=== PATIENT | female | born 1985 | race Two or more races ===

== ENCOUNTER 2024-09-05 10:03 | Outpatient (AMB) | payer BC, SELFPAY ==
--- NOTE | 2024-09-05 10:07 | AMB.OBINITIA ---
Vital Signs 09/05/24 10:13 Height 1.63 m Height Method Stated Weight 83.688 kg Weight Measurement Method Standing Scale BMI 31.6 BP 124/78 Blood Pressure Source Automatic Cuff Blood Pressure Location Left Upper Arm Position Sitting Respiration 16 Pulse 98 Pulse Source Monitor Temp 97.2 F Temp Source Oral Pulse Oximetry (%) 99 Oxygen Delivery Method Room Air Allergies/Home Meds Allergies & Medications Allergies No Known Allergies Allergy (Verified 09/05/24 10:16) Medication Reconciliation vit no.95-ferrous fumarate 28 mg-folic acid 800 mcg tablet () 1 tab PO QDAY 07/17/18 [History Confirmed 09/05/24] Intake Visit Data Collection New Patient or Established: Established Patient (seen at [facility] within 3 years) Reason for Visit:: Initial visit at 18 weeks and 5 days gestation. Seen by Clinical Staff ONLY (RN/MA): No Do You Feel Safe at Home: Yes Authorities Contacted: N/A PCP or OBGYN visit in last 3 months: No Hx Now: Yes Are you currently on any form of Control: No Last menstrual period: 04/27/24 Pain Present Currently: No Pain Scale Used: Cueto-Gonsalez/Numerical Pain scale:: 0 Smoking Status Smoking Status: Never smoker Questionnaires Covid-19 Vaccine Questionnaire Has patient been vacinated for Covid-19 Have you been vacinated for Covid-19: Yes PHQ-9 PHQ-2 Over the last 2 weeks, how often have you been bothered by any of the following problems? 1. Little interest or pleasure in doing things: not at all 2. Feeling down, depressed, or hopeless: not at all Total score: 0 PHQ-9 3. Trouble falling or staying asleep, or sleeping too much: Not at all 4. Feeling tired or having little energy: Not at all 5. Poor appetite or overeating: Not at all 6. Feeling bad about yourself - or that you are a failure or have let yourself or your family down: Not at all 7. Trouble concentrating on things, such as reading the newspaper or watching television: Not at all 8. Moving or speaking so slowly that other people could have noticed? - Or the opposite - being so fidgety or restless that you have been moving around a lot more than usual: not at all 9. Thoughts that you would be better off or of hurting yourself in some way: Not at all Total score: 0 If you checked off any problems, how difficult have these problems made it for you to do your work, take care of things at home, or get along with other people?: not difficult at all Source: Developed by Drs. Osvaldo Longoria, Margarita Hogue, Dakota Gore and colleagues, with an educational kathie from [employer]. Social History Living Situation History Marital Status: Single Lives With: Family Housing: House Tobacco History Smoking Status: Never smoker Second Hand Smoke Exposure: No Alcohol History Alcohol Intake: Never Domestic Abuse History Do You Feel Safe at Home: Yes Past Medical History Past Medical History Have you ever been diagnosed with any of the following: Cardiology Problems Congestive Heart Failure: No Respiratory Problems Chronic Obstructive Pulmonary Disease (COPD): No Asthma: Yes (no meds) Genital/Urinary Problems Renal Disease: No Reproductive Problems Previous Pregnancies: Yes (x7 including 4 SAB) Endocrine Problems Diabetes Mellitus Type 1: No Diabetes Mellitus Type 2: No Other Problems Hospitalization: Yes (childbirth) History of Present Illness HPI Narrative 39-year-old female presents for initial visit at 18 weeks and 5 days gestation by stated LMP of 04/27/2024. Patient reports no prior care or ultrasounds for this . She denies any current symptoms or complications. Patient has a history of 4 previous vaginal deliveries without reported complications. She also reports a history of 3 prior pregnancies with no pole visualized, resulting in D&Cs. During her third , she experienced borderline gestational diabetes and recalls craving sugary drinks. With the current , she notes similar cravings for sugary foods. Medical History - (7 pregnancies, 4 full-term deliveries, 0 deliveries, 3 miscarriages, 4 living children) - History of 3 miscarriages (D&Cs performed) - History of borderline gestational diabetes in third OB Initial Visit Menstrual History Menstrual reliability: definite Flow: heavy Menstrual regularity: irregular Monthly: Yes Age at menarche: 10 On control pills at conception: No Date of positive home test: 07/20/24 OB History : 8 Para: 4 Hx Total # of Abortions (Spontaneous & Elective): 3 # of Living Children: 4 Delivery History 1st : Child's name: RAVI date: 03/03/02 sex: male Delivery type: vaginal weight (lbs): 3175.147 g History of depression before or after : No 2nd : Child's name: DELORES date: 08/18/10 sex: female Delivery type: vaginal weight (lbs): 3175.147 g 3rd : Child's name: SABIHA date: 01/13/13 sex: female Delivery type: vaginal weight (lbs): 3175.147 g History of depression before or after : No 4th : Child's name: GEM date: 07/17/18 sex: female Delivery type: vaginal weight (lbs): 3175.147 g History of depression before or after : No Infection History & Risk Evaluation History of STDs: none HIV risk evaluation: low risk Hepatitis B risk evaluation: low risk Patient or partner has history of Genital Herpes: No Varicella/chicken pox status: immunized Genetic Screening & History Genetic Screening/Teratology Counseling - Includes patient, baby's father, or anyone in either family with: 1. Patient's age 35 years or older as of estimated date of delivery: Yes 2. Thalassemia (E[place]ian, Citizen Of [place], Mediterranean, or Background); MCV less than 80: No 3. Neural Tube Defect (Meningomyelocele, Spina Bifida, or Anencephaly): No 4. Congenital Heart Defect: No 5. Down Syndrome: No 6. Carlos Enrique-Sachs (Ashkenazi Anglican, Cajun, [place]): No 7. Pavel Disease (Ashkenazi Anglican): No 8. Familial Dysautonomia (Ashkenazi Anglican): No 9. Sickle Cell Disease or Trait (): No 10. Hemophilia or other blood disorders: No 11. Muscular Dystrophy: No 12. Cystic Fibrosis: No 13. [place]'s Chorea: No 14. Mental Retardation/Autism: No 15. Other inherited genetic or chromosomal disorder: No 16. Maternal Metabolic Disorder (EG,TYPE 1 Diabetes, PKU): No 17. Patient or baby's father had a child with defects not listed above: Yes 18. Recurrent loss or a stillbirth: Yes 19. Medications (including supplements, vitamins, herbs or otc drugs)/illicit/recreational drugs/alcohol since last menstrual period: No 20. Any other: No Infection History 1. Live with someone with TB or exposed to TB: No 2. Rash or viral illness since last menstrual period: No 3. Hepatitis B,C: No Other (see comments) Source: [employer] [place] [employer] Review of Systems Review of Systems Systems Reviewed: All systems reviewed, normal except as documented Exam General Limitations: no limitations General Appearance: alert, in no apparent distress, comfortable, cooperative, healthy appearing, well developed and well groomed Head Head exam: atraumatic, normocephalic and normal inspection Neck Neck exam: Present normal inspection, full ROM and trachea midline Chest Chest inspection: Present normal inspection and symmetric chest wall rise Abdominal Abdominal exam: Present soft and normal bowel sounds Extremities Extremities exam: Present normal inspection and full ROM Back Back exam: Present normal inspection and full ROM Psych Psychiatric exam: Present normal affect and normal mood Skin Skin exam: Present warm, dry, intact and normal color Assessment & Plan Diagnosis / Problem List (1) Advanced maternal age (AMA), 40 years or greater: Status: Acute (2) Grand multiparity: Status: Acute (3) Supervision of high risk , unspecified, second trimester: Status: Acute Plan: at 18 weeks 5 days gestation 39-year-old presenting for initial visit at 18 weeks 5 days gestation by LMP. Patient has a history of 4 previous vaginal deliveries and 3 prior pregnancies with no development ( no baby in the sack ). Ultrasound performed in office showed cardiac activity with heart rate of 163 bpm, which is within normal range. However, measurements were inconsistent with dates, measuring approximately 15-16 weeks instead of the expected 18 weeks. Patient reports history of borderline gestational diabetes in a previous . - Referral for formal ultrasound to confirm gestational age and anatomy - Laboratory tests including genetic screening - Prescribe vitamins - Initiate low-dose aspirin for preeclampsia prevention (due to advanced maternal age) - Follow-up appointment in 2 weeks - Anticipate results of genetic screening and sex determination within 3-4 days Office Procedures OB Clinic LOC & Office Proc's Nursing/Assessment Patient Status: Initial/New Patient OB Clinic Nursing Assessment: BP Monitoring, Medication Reconciliation, Update PMH in EMR and Vital Signs OB Clinic Coordination of Care: Consent,records obtained, informed consent, Education Simp Pt/Fam, Lab and Imaging orders and Staff clarify orders Special Needs: Heart tones New Patient Charge New Patient Point Assignment: [id number] New Patient Point Charge: DONATION WORKER Level 4 ([id number]) Bedside Ultrasounds US Transabdominal >14 weeks at bedside: Yes
[2024-09-05 10:13] VITALS: BP 124/78; PULSE 98; RESP 16; TEMP 36.2; O2SAT 99; BMI 31.6
== END 2024-09-05 10:36 | disposition home or self-care (01) ==
LOC: HODSOBC 10:03
PROVIDERS: PCP Family Medicine; Supervising Provider Obstetrics & Gynecology; Visit Provider Obstetrics & Gynecology
DX: O09.522 Supervision of elderly multigravida, second trimester (principal); Z3A.18 18 weeks gestation of pregnancy; O09.42 Supervision of pregnancy with grand multiparity, second trimester; O09.892 Supervision of other high risk pregnancies, second trimester; O26.842 Uterine size-date discrepancy, second trimester; O09.292 Supervision of pregnancy with other poor reproductive or obstetric history, second trimester; Z86.32 Personal history of gestational diabetes; Z87.59 Personal history of other complications of pregnancy, childbirth and the puerperium
CPT/HCPCS: 76805; 99204; G0463

== ENCOUNTER → 2024-09-05 | Outpatient (CLI) | payer BC, SELFPAY ==
--- NOTE | 2024-09-05 | XR_ITS ---
Examination: Complete OB ultrasound greater than 14 weeks Date and time of exam: September 05, 2024 1122 hours INDICATIONS: Diagnosis supervision of high risk Findings: Viable intrauterine single fetus with single amniotic sac presentation Vertex spine variable Cardiac motion 155 BPM Placenta posterior grade 2 Umbilical cord insertion seen Amniotic fluid adequate Cervix 3.8 cm Right ovary 2.3 cm arterial flow Left ovary 3.1 cm arterial flow. Composite estimated gestational age based on BPD, head circumference, abdominal circumference, femur length is 14 weeks 0 days Estimated weight 89 g. Survey of intracranial anatomy, spinal anatomy, abdominal anatomy, four-chamber heart performed with no abnormalities identified. Impression: Viable intrauterine gestation vertex presentation.
== END | disposition home or self-care (01) ==
PROVIDERS: PCP Internal Medicine; Referring Provider Obstetrics & Gynecology; Visit Provider Obstetrics & Gynecology
DX: O09.92 Supervision of high risk pregnancy, unspecified, second trimester (principal); Z3A.14 14 weeks gestation of pregnancy
CPT/HCPCS: 76805

== ENCOUNTER 2024-09-17 09:32 | Outpatient (AMB) | payer BC, SELFPAY ==
--- NOTE | 2024-09-17 09:39 | AMB.OBVISIT ---
Vital Signs 09/17/24 10:22 Height 1.63 m Height Method Stated Weight 83.688 kg Weight Measurement Method Standing Scale BMI 31.5 BP 124/76 Blood Pressure Source Automatic Cuff Blood Pressure Location Left Upper Arm Position Sitting Respiration 18 Pulse 95 Pulse Source Monitor Temp 97.9 F Temp Source Oral Pulse Oximetry (%) 98 Oxygen Delivery Method Room Air Allergies/Home Meds Allergies & Medications Allergies No Known Allergies Allergy (Verified 09/17/24 10:23) Intake Visit Data Collection New Patient or Established: Established Patient (seen at [facility] within 3 years) Reason for Visit:: care Seen by Clinical Staff ONLY (RN/MA): No Senior Electrical Designer Required: No Do You Feel Safe at Home: Yes Authorities Contacted: N/A PCP or OBGYN visit in last 3 months: Yes Date of Last PCP or OBGYN visit: 09/05/24 Hx Now: Yes Are you currently on any form of Control: No Last menstrual period: 05/02/24 Pain Present Currently: No Pain Scale Used: Cueto-Gonsalez/Numerical Pain scale:: 0 Smoking Status Smoking Status: Never smoker Questionnaires Covid-19 Vaccine Questionnaire Has patient been vacinated for Covid-19 Have you been vacinated for Covid-19: Yes PHQ-9 PHQ-2 Over the last 2 weeks, how often have you been bothered by any of the following problems? 1. Little interest or pleasure in doing things: not at all 2. Feeling down, depressed, or hopeless: not at all Total score: 0 PHQ-9 3. Trouble falling or staying asleep, or sleeping too much: Not at all 4. Feeling tired or having little energy: Not at all 5. Poor appetite or overeating: Not at all 6. Feeling bad about yourself - or that you are a failure or have let yourself or your family down: Not at all 7. Trouble concentrating on things, such as reading the newspaper or watching television: Not at all 8. Moving or speaking so slowly that other people could have noticed? - Or the opposite - being so fidgety or restless that you have been moving around a lot more than usual: not at all 9. Thoughts that you would be better off or of hurting yourself in some way: Not at all Total score: 0 Source: Developed by Jose Mosleyet B.W. Mykel, Dakota Gore and colleagues, with an educational kathie from [employer]. Depression screen completed yes Social History Living Situation History Marital Status: Lives With: Family Housing: House Tobacco History Smoking Status: Never smoker Second Hand Smoke Exposure: No Alcohol History Alcohol Intake: Never Substance Use History Substance Use: none Domestic Abuse History Do You Feel Safe at Home: Yes Past Medical History Past Medical History Have you ever been diagnosed with any of the following: Cardiology Problems Congestive Heart Failure: No Respiratory Problems Chronic Obstructive Pulmonary Disease (COPD): No Asthma: Yes (no meds) Genital/Urinary Problems Renal Disease: No Reproductive Problems Previous Pregnancies: Yes (x7 including 4 SAB) Endocrine Problems Diabetes Mellitus Type 1: No Diabetes Mellitus Type 2: No Other Problems Hospitalization: Yes (childbirth) History of Present Illness HPI Narrative History of Present Illness Patient is a woman presenting for routine care. An ultrasound was performed on September 05, at which time the gestational age was determined to be 14 weeks and 0 days. Today, the patient is at 15 weeks and 5 days gestation with an estimated due date of March 06. The patient inquired about determining the fetus's sex, which will be assessed through upcoming laboratory tests. No CTX/LOF/VB, stable N/V Review of Systems Review of Systems Systems Reviewed: All systems reviewed, normal except as documented Visit NORMA Calculator Estimated Delivery Date Method Current WG Current Estimate 03/06/25 Ultrasound #1 16w 0d Other Estimates 02/01/25 LMP (Uncertain) 20w 5d Exam General Limitations: no limitations General Appearance: alert, in no apparent distress, comfortable, cooperative, healthy appearing, well developed and well groomed Head Head exam: atraumatic, normocephalic and normal inspection Neck Neck exam: Present normal inspection, full ROM and trachea midline Chest Chest inspection: Present normal inspection and symmetric chest wall rise Abdominal Abdominal exam: Present soft and normal bowel sounds Extremities Extremities exam: Present normal inspection and full ROM Back Back exam: Present normal inspection and full ROM Psych Psychiatric exam: Present normal affect and normal mood Skin Skin exam: Present warm, dry, intact and normal color Assessment & Plan Diagnosis / Problem List (1) Advanced maternal age (AMA), 40 years or greater: Status: Acute (2) Grand multiparity: Status: Acute (3) Supervision of high risk , unspecified, second trimester: Status: Acute Plan: Intrauterine Patient is at 15 weeks and 5 days gestation based on ultrasound measurements from September 05, which showed a gestational age of 14 weeks and 0 days. The ultrasound demonstrated appropriate measurements and a good heartbeat. The estimated due date is March 06, 2025. - Complete pending laboratory tests - Follow-up appointment scheduled in 4 weeks (around 20 weeks gestation) - Genetic screening results expected in approximately 3 days Pt Education Educated the patient on labor signs, including regular contractions, lower back pain, and changes in vaginal discharge. Advised avoiding heavy lifting and getting adequate rest. Instructed to contact the office immediately if any signs occur. Discussed the importance of a balanced diet rich in folic acid, iron, and calcium, and provided a list of recommended and to-avoid foods. Emphasized avoiding high-sugar foods to reduce gestational diabetes risk. Encouraged hydration and frequent, small meals for energy. Office Procedures OB Clinic LOC & Office Proc's Nursing/Assessment Patient Status: Established Patient OB Clinic Nursing Assessment: Medication Reconciliation, Update PMH in EMR and Vital Signs OB Clinic Coordination of Care: Complex Care and Chronic Disease 1-5, Consent,records obtained, informed consent, Education Simp Pt/Fam, Lab and Imaging orders and Staff clarify orders Special Needs: Heart tones Established Patient Charge Established Patient Point Assignment: 130 Established Patient Point Charge: EP Level 4 (120-155)
[2024-09-17 10:22] VITALS: BP 124/76; PULSE 95; RESP 18; TEMP 36.6; O2SAT 98; BMI 31.5
== END 2024-09-17 10:35 | disposition home or self-care (01) ==
LOC: HODSOBC 09:32
PROVIDERS: PCP Obstetrics & Gynecology; Referring Provider Obstetrics & Gynecology; Supervising Provider Obstetrics & Gynecology; Visit Provider Obstetrics & Gynecology
DX: O09.522 Supervision of elderly multigravida, second trimester (principal); Z3A.14 14 weeks gestation of pregnancy; Z64.1 Problems related to multiparity
CPT/HCPCS: 99214; G0463

== ENCOUNTER → 2024-09-20 | Outpatient (CLI) | payer BC, SELFPAY ==
[2024-09-20 10:13] LABS: Basophils % (Auto) 0 % (0-2.5); Eosinophils # (Auto) 0.2 Thou/mm3 (0.0-0.5); Eosinophils % (Auto) 2 % (0-10); Hematocrit 33.3 % (36.0-46.0); Hemoglobin 10.8 g/dL (12.0-16.0); Immature Granulocytes % (Auto) 0 % (0-0); Immature Granulocytes Auto 0.04 Thou/mm3 (0.00-0.00); Lymphocytes # (Auto) 1.8 Thou/mm3 (1.0-4.8); Lymphocytes % (Auto) 19 % (10-50); Mean Corpuscular HGB Conc 32.4 g/dl (31.0-37.0); Mean Corpuscular Hemoglobin 27.2 pg (25.0-35.0); Mean Corpuscular Volume 84 fL (80-100); Monocytes # (Auto) 0.5 Thou/mm3 (0.0-0.8); Monocytes % (Auto) 6 % (0-12); Neutrophils # (Auto) 6.9 Thou/mm3 (1.8-7.7); Neutrophils % (Auto) 73 % (37-80); Nucleated Red Blood Cell % 0 /100 WBC (0); Platelet Count 265 Thou/mm3 (140-440); RDW Standard Deviation 50.6 fL (36.4-46.3); Red Blood Count 3.97 Miln/mm3 (4.00-5.20); White Blood Count 9.5 Thou/mm3 (3.6-11.0)
[2024-09-20 10:41] LABS: Glucose 81 mg/dL (74-106); Glucose Estimated Average 105 mg/dL (80-131); Hemoglobin A1C 5.3 % Hgb (4.8-6.0)
[2024-09-20 10:54] LABS: Hepatitis B Surface Antigen Non Reactive (Non React); Rubella, IgG Antibody Equivocal
[2024-09-20 11:39] LABS: HIV (1&2) Antibody Rapid Non-Reactive
== END | disposition home or self-care (01) ==
LOC: COPL 08:43
PROVIDERS: PCP Internal Medicine; Referring Provider Obstetrics & Gynecology; Visit Provider Obstetrics & Gynecology
DX: O09.92 Supervision of high risk pregnancy, unspecified, second trimester (principal); Z64.1 Problems related to multiparity; Z3A.00 Weeks of gestation of pregnancy not specified
CPT/HCPCS: 36415; 82947; 83036; 85025; 86703; 86762; 86850; 86900; 86901; 87340

== ENCOUNTER 2024-10-15 09:07 | Outpatient (AMB) | payer BC, SELFPAY ==
[2024-10-15 09:16] VITALS: BP 114/73; PULSE 90; RESP 16; TEMP 36.8; O2SAT 98; BMI 32.3
--- NOTE | 2024-10-15 09:16 | OBCLNT_ITS ---
Vital Signs 10/15/24 09:16 Height 1.63 m Height Method Stated Weight 85.899 kg Weight Measurement Method Standing Scale BMI 32.3 BP 114/73 Blood Pressure Source Automatic Cuff Blood Pressure Location Left Upper Arm Position Sitting Respiration 16 Pulse 90 Pulse Source Monitor Temp 98.2 F Temp Source Oral Pulse Oximetry (%) 98 Oxygen Delivery Method Room Air Allergies/Home Meds Allergies & Medications Allergies No Known Allergies Allergy (Verified 10/15/24 09:17) Medication Reconciliation No Known Home Medications 10/15/24 [History Confirmed 10/15/24] Intake Visit Data Collection New Patient or Established: Established Patient (seen at [facility] within 3 years) Reason for Visit:: OBC Seen by Clinical Staff ONLY (RN/MA): No Medicare Specialist Required: No Do You Feel Safe at Home: Yes Authorities Contacted: N/A PCP or OBGYN visit in last 3 months: Yes Date of Last PCP or OBGYN visit: 09/20/24 Hx Now: Yes Are you currently on any form of Control: No Pain Present Currently: No Pain Scale Used: Cueto-Gonsalez/Numerical Pain scale:: 0 Smoking Status Smoking Status: Never smoker Questionnaires Covid-19 Vaccine Questionnaire Has patient been vacinated for Covid-19 Have you been vacinated for Covid-19: Yes PHQ-9 PHQ-2 Over the last 2 weeks, how often have you been bothered by any of the following problems? 1. Little interest or pleasure in doing things: not at all 2. Feeling down, depressed, or hopeless: not at all Total score: 0 PHQ-9 3. Trouble falling or staying asleep, or sleeping too much: Not at all 4. Feeling tired or having little energy: Not at all 5. Poor appetite or overeating: Not at all 6. Feeling bad about yourself - or that you are a failure or have let yourself or your family down: Not at all 7. Trouble concentrating on things, such as reading the newspaper or watching television: Not at all 8. Moving or speaking so slowly that other people could have noticed? - Or the opposite - being so fidgety or restless that you have been moving around a lot more than usual: not at all 9. Thoughts that you would be better off or of hurting yourself in some way: Not at all Total score: 0 If you checked off any problems, how difficult have these problems made it for you to do your work, take care of things at home, or get along with other people?: not difficult at all Source: Developed by Drs. Osvaldo Longoria, Margarita Hogue, Dakota Gore and colleagues, with an educational kathie from [employer]. Depression screen completed yes Social History Living Situation History Lives With: Family Housing: House Tobacco History Smoking Status: Never smoker Second Hand Smoke Exposure: No Alcohol History Alcohol Intake: Never Substance Use History Substance Use: none Domestic Abuse History Do You Feel Safe at Home: Yes Past Medical History Past Medical History Have you ever been diagnosed with any of the following: Cardiology Problems Congestive Heart Failure: No Respiratory Problems Chronic Obstructive Pulmonary Disease (COPD): No Asthma: Yes (no meds) Genital/Urinary Problems Renal Disease: No Reproductive Problems Previous Pregnancies: Yes (x7 including 4 SAB) Endocrine Problems Diabetes Mellitus Type 1: No Diabetes Mellitus Type 2: No Other Problems Hospitalization: Yes (childbirth) History of Present Illness HPI Narrative Patient reports feeling good overall with no significant complaints. She mentions she can feel the baby moving a little bit, describing it as just the beginning of it. She denies any current nausea, vomiting, or stomach cramping. Layla had some difficulties obtaining her lab work due to insurance issues at an off-site location, but was able to complete most of the required tests at the clinic. She has an upcoming ultrasound scheduled for the of this month. She is a 8 para 4 at 19 weeks and 5 days gestation. Her obstetric history includes 3 abortions and 4 living children. Patient reports feeling movement. Review of Systems Review of Systems Systems Reviewed: All systems reviewed, normal except as documented Visit OB Visit Log OB Flowsheet Initial Weight: Not Recorded Date -?-?-?-?-?-?-?-?-?-?-?-?- EGA Weight Edema CTX Effacement BP Fundal ht Pres Dilation Effacement Station Visit Note Alb Glu FHR Mov 10/15/24 -?-?-?-?-?-?-?-?-?-?-?-?- 19w 5d 85.899 kg 114/73 grav abby 8 para 4 at 19 weeks and 5 days gestation. Her obstetric history includes 3 abortions and 4 living children. Patient reports feeling movement. Diagnostic Test Results and Labs: - Blood group: A positive - Antibody screen: Negative - Hemoglobin: 10.8 g/dL - RPR: Non-reactive - Hepatitis B: Negative - HIV: Negative - Rubella: Equivocal. - Ultrasound scheduled for October 24. - Follow-up appointment in 4 weeks (appr oximately 24 weeks gestation) with Dr. Paniagua. - Genetic testing still pending due to i nsurance issues at [facility]. - Provided new lab order for patient to attempt genetic testing again. active NORMA Calculator Estimated Delivery Date Method Current WG Current Estimate 03/06/25 Ultrasound #1 20w 1d Other Estimates 02/01/25 LMP (Uncertain) 24w 6d Exam General Limitations: no limitations General Appearance: alert, in no apparent distress, comfortable, cooperative, healthy appearing, well developed and well groomed Head Head exam: atraumatic, normocephalic and normal inspection Chest Chest inspection: Present normal inspection and symmetric chest wall rise Abdominal Abdominal exam: Present soft and normal bowel sounds Psych Psychiatric exam: Present normal affect and normal mood Skin Skin exam: Present warm, dry, intact and normal color Assessment & Plan Diagnosis / Problem List (1) Advanced maternal age (AMA), 40 years or greater: Status: Acute (2) Grand multiparity: Status: Acute (3) Supervision of high risk , unspecified, second trimester: Status: Acute Plan Routine Care: - Patient at 19 weeks and 5 days gestation. - Blood group A positive, negative antibody screen. - Hemoglobin 10.8, non-reactive RPR, negative hepatitis B and HIV. - Equivocal rubella. - heart rate normal at 144-145 bpm. - Patient reports feeling movement. - Denies nausea, vomiting, or stomach cramping. Plan: - Ultrasound scheduled for October 24, 2024. - Follow-up appointment in 4 weeks (approximately 24 weeks gestation) with Dr. Paniagua. - Genetic testing still pending due to insurance issues at [facility]. - Provided new lab order for patient to attempt genetic testing again. Office Procedures OB Clinic LOC & Office Proc's Nursing/Assessment Patient Status: Established Patient OB Clinic Nursing Assessment: BP Monitoring, Medication Reconciliation, Update PMH in EMR and Vital Signs OB Clinic Coordination of Care: Consent,records obtained, informed consent, Education Simp Pt/Fam, Lab and Imaging orders and Staff clarify orders Established Patient Charge Established Patient Point Assignment: 90 Established Patient Point Charge: EP Level 3 (80-115)
== END 2024-10-15 09:35 | disposition home or self-care (01) ==
LOC: HODSOBC 09:07
PROVIDERS: PCP Obstetrics & Gynecology; Referring Provider Obstetrics & Gynecology; Supervising Provider Obstetrics & Gynecology; Visit Provider Obstetrics & Gynecology
DX: O09.522 Supervision of elderly multigravida, second trimester (principal); Z3A.19 19 weeks gestation of pregnancy; O09.292 Supervision of pregnancy with other poor reproductive or obstetric history, second trimester; O26.22 Pregnancy care for patient with recurrent pregnancy loss, second trimester; O09.42 Supervision of pregnancy with grand multiparity, second trimester; Z75.8 Other problems related to medical facilities and other health care
CPT/HCPCS: 99213; G0463

== ENCOUNTER 2024-11-14 09:31 | Outpatient (AMB) | payer BC, SELFPAY ==
[2024-11-14 09:53] VITALS: BP 128/80; PULSE 96; RESP 18; TEMP 36.6; O2SAT 98; BMI 32.6
--- NOTE | 2024-11-14 09:53 | AMB.OBVISIT ---
Vital Signs 11/14/24 09:53 Height 1.63 m Height Method Stated Weight 86.693 kg Weight Measurement Method Standing Scale BMI 32.6 BP 128/80 Blood Pressure Source Automatic Cuff Blood Pressure Location Left Upper Arm Position Sitting Respiration 18 Pulse 96 Pulse Source Monitor Temp 97.8 F Temp Source Oral Pulse Oximetry (%) 98 Oxygen Delivery Method Room Air Allergies/Home Meds Allergies & Medications Allergies No Known Allergies Allergy (Verified 11/14/24 09:54) Medication Reconciliation vitamin-ferrous fumarate 28 mg iron-folic acid 800 mcg tablet ( Vitamins with Minerals) 1 tab PO QDAY #60 tabs 11/14/24 [Rx] Intake Visit Data Collection New Patient or Established: Established Patient (seen at [facility] within 3 years) Reason for Visit:: CARE Seen by Clinical Staff ONLY (RN/MA): No Rate Quoting Operator Required: No Do You Feel Safe at Home: Yes Authorities Contacted: N/A PCP or OBGYN visit in last 3 months: Yes Hx Now: Yes Are you currently on any form of Control: No Pain Present Currently: No Pain Scale Used: Cueto-Gonsalez/Numerical Pain scale:: 0 Smoking Status Smoking Status: Never smoker Questionnaires Covid-19 Vaccine Questionnaire Has patient been vacinated for Covid-19 Have you been vacinated for Covid-19: Yes PHQ-9 PHQ-2 Over the last 2 weeks, how often have you been bothered by any of the following problems? 1. Little interest or pleasure in doing things: not at all 2. Feeling down, depressed, or hopeless: not at all Total score: 0 PHQ-9 3. Trouble falling or staying asleep, or sleeping too much: Not at all 4. Feeling tired or having little energy: Not at all 5. Poor appetite or overeating: Not at all 6. Feeling bad about yourself - or that you are a failure or have let yourself or your family down: Not at all 7. Trouble concentrating on things, such as reading the newspaper or watching television: Not at all 8. Moving or speaking so slowly that other people could have noticed? - Or the opposite - being so fidgety or restless that you have been moving around a lot more than usual: not at all 9. Thoughts that you would be better off or of hurting yourself in some way: Not at all Total score: 0 Source: Developed by Drs. Osvaldo Longoria, Margarita Hogue, Dakota Gore and colleagues, with an educational kathie from [employer]. 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 Her obstetric history includes 3 abortions and 4 living children. Patient reports feeling movement. Diagnostic Test Results and Labs: - Blood group: A positive - Antibody screen: Negative - Hemoglobin: 10.8 g/dL - RPR: Non-reactive - Hepatitis B: Negative - HIV: Negative - Rubella: Equivocal. - Ultrasound scheduled for October 24, 2024. - Follow-up appointment in 4 weeks (approximately 24 weeks gestation) with Dr. Paniagua. - Genetic testing still pending due to insurance issues at [facility]. - Provided new lab order for patient to attempt genetic testing again. active 11/14/24 <del>?</del> 24w 0d 86.693 kg absent absent 128/80 24 reports + FM. no PTL complaints. patient plans to go to [facility] for 2 week 12/12. No OB complaints. 3rd tri labs, ptl precaution, f/u MFM6/66. rtc 4 week 145 active NORMA Calculator Estimated Delivery Date Method Current WG Current Estimate 03/06/25 Ultrasound #1 24w 0d Other Estimates 02/01/25 LMP (Uncertain) 28w 5d Notes Visit Date: 11/14/24 Last Updated by: Arcelia Joy, CNM 39 yo . lmp 05/31/24. EDC 03/06/25, mfm 10/24: 21 week. EDC: 03/08/25. : A+,ABS-, rpr;;nr, rub NI, HIV-glucose:105, A1: 5.3, H/H: Office Procedures OB Clinic LOC & Office Proc's Nursing/Assessment Patient Status: Established Patient OB Clinic Nursing Assessment: Medication Reconciliation, Update PMH in EMR and Vital Signs OB Clinic Coordination of Care: AMA, Complex Care and Chronic Disease 1-5, Consent,records obtained, informed consent, Education Simp Pt/Fam, Lab and Imaging orders, Results/Orders obtained and Staff clarify orders Special Needs: Heart tones Miscellaneous Interventions: Blood/Urine Collection Established Patient Charge Established Patient Point Assignment: 185 Established Patient Point Charge: EP Level 5 (160-above) Assessment & Plan Diagnosis / Problem List (1) Advanced maternal age (AMA), 40 years or greater: Status: Acute Plan 3rd tri lab, ptl precaution, start GDM diet, walk 40 minute daily. f/u [facility] 12/26, note for travel [place], increase fluid. continue PNV, low dose asa. rtc 3 week Additional Plan Follow Up: 3 Weeks (obc)
== END 2024-11-14 10:26 | disposition home or self-care (01) ==
LOC: HODSOBC 09:31
PROVIDERS: PCP Obstetrics & Gynecology; Referring Provider Obstetrics & Gynecology; Supervising Provider Obstetrics & Gynecology; Visit Provider Obstetrics & Gynecology
DX: O09.522 Supervision of elderly multigravida, second trimester (principal); Z3A.24 24 weeks gestation of pregnancy
CPT/HCPCS: 81001; 99215; G0463

== ENCOUNTER → 2024-11-14 | Outpatient (CLI) | payer BC, SELFPAY ==
[2024-11-14 13:43] LABS: Basophils % (Auto) 0 % (0-2.5); Eosinophils # (Auto) 0.1 Thou/mm3 (0.0-0.5); Eosinophils % (Auto) 1 % (0-10); Hemoglobin 11.1 g/dL (12.0-16.0); Immature Granulocytes % (Auto) 1 % (0-0); Lymphocytes # (Auto) 1.6 Thou/mm3 (1.0-4.8); Lymphocytes % (Auto) 17 % (10-50); Mean Corpuscular HGB Conc 34.7 g/dl (31.0-37.0); Mean Corpuscular Hemoglobin 30.9 pg (25.0-35.0); Mean Corpuscular Volume 89 fL (80-100); Monocytes # (Auto) 0.4 Thou/mm3 (0.0-0.8); Monocytes % (Auto) 4 % (0-12); Neutrophils # (Auto) 7.5 Thou/mm3 (1.8-7.7); Neutrophils % (Auto) 77 % (37-80); Nucleated Red Blood Cell % 0 /100 WBC (0); Platelet Count 253 Thou/mm3 (140-440); RDW Standard Deviation 51.2 fL (36.4-46.3); Red Blood Count 3.59 Miln/mm3 (4.00-5.20); White Blood Count 9.7 Thou/mm3 (3.6-11.0)
[2024-11-14 13:48] LABS: Glucose,1 Hour PP 50gm Dose 198 mg/dL (80-140)
[2024-11-14 13:49] LABS: Glucose Estimated Average 94 mg/dL (80-131); Hemoglobin A1C 4.9 % Hgb (4.8-6.0)
[2024-11-14 14:08] LABS: Syphilis Nonreactive (Nonreactive)
== END | disposition home or self-care (01) ==
LOC: COPL 10:26
PROVIDERS: PCP Internal Medicine; Referring Provider Obstetrics & Gynecology; Visit Provider Obstetrics & Gynecology
DX: Z34.83 Encounter for supervision of other normal pregnancy, third trimester (principal)
CPT/HCPCS: 36415; 82950; 83036; 85025; 86780

== ENCOUNTER 2024-12-05 09:09 | Outpatient (AMB) | payer BC, SELFPAY ==
[2024-12-05 09:49] VITALS: BP 132/79; PULSE 96; RESP 18; TEMP 36.2; O2SAT 98; BMI 33.3
--- NOTE | 2024-12-05 09:49 | AMB.OBVISIT ---
Vital Signs 12/05/24 09:49 Height 1.63 m Height Method Stated Weight 88.451 kg Weight Measurement Method Standing Scale BMI 33.3 BP 132/79 H Blood Pressure Source Automatic Cuff Blood Pressure Location Left Upper Arm Position Sitting Respiration 18 Pulse 96 Pulse Source Monitor Temp 97.2 F Temp Source Oral Pulse Oximetry (%) 98 Oxygen Delivery Method Room Air Allergies/Home Meds Allergies & Medications Allergies No Known Allergies Allergy (Verified 12/05/24 09:49) Medication Reconciliation vitamin-ferrous fumarate 28 mg iron-folic acid 800 mcg tablet ( Vitamins with Minerals) 1 tab PO QDAY #60 tabs 11/14/24 [Rx Confirmed 12/05/24] blood sugar diagnostic (Blood Glucose Test strips) #10 ea 12/05/24 [Rx] blood-glucose meter #1 ea 12/05/24 [Rx] ferrous sulfate 325 mg (65 mg iron) tablet 325 mg PO BID #60 tabs 12/05/24 [Rx] lancets #100 ea 12/05/24 [Rx] loratadine 10 mg tablet (Claritin) 10 mg PO QDAY PRN allergic symptoms #30 tabs 12/05/24 [Rx] vitamin-ferrous fumarate 28 mg iron-folic acid 800 mcg tablet ( Vitamins with Minerals) 1 tab PO QDAY #60 tabs 12/05/24 [Rx] Intake Visit Data Collection New Patient or Established: Established Patient (seen at [facility] within 3 years) Reason for Visit:: OBC Seen by Clinical Staff ONLY (RN/MA): No Pilot Boat Operator Required: No Do You Feel Safe at Home: Yes Authorities Contacted: N/A PCP or OBGYN visit in last 3 months: Yes Date of Last PCP or OBGYN visit: 11/14/24 Hx Now: Yes Are you currently on any form of Control: No Pain Present Currently: No Pain Scale Used: Cueto-Gonsalez/Numerical Pain scale:: 0 Smoking Status Smoking Status: Never smoker Questionnaires Covid-19 Vaccine Questionnaire Has patient been vacinated for Covid-19 Have you been vacinated for Covid-19: Yes PHQ-9 PHQ-2 Over the last 2 weeks, how often have you been bothered by any of the following problems? 1. Little interest or pleasure in doing things: not at all 2. Feeling down, depressed, or hopeless: not at all Total score: 0 PHQ-9 3. Trouble falling or staying asleep, or sleeping too much: Not at all 4. Feeling tired or having little energy: Not at all 5. Poor appetite or overeating: Not at all 6. Feeling bad about yourself - or that you are a failure or have let yourself or your family down: Not at all 7. Trouble concentrating on things, such as reading the newspaper or watching television: Not at all 8. Moving or speaking so slowly that other people could have noticed? - Or the opposite - being so fidgety or restless that you have been moving around a lot more than usual: not at all 9. Thoughts that you would be better off or of hurting yourself in some way: Not at all Total score: 0 If you checked off any problems, how difficult have these problems made it for you to do your work, take care of things at home, or get along with other people?: not difficult at all Source: Developed by Drs. Osvaldo Longoria, Margarita Hogue, Dakota Gore and colleagues, with an educational kathie from [employer]. 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 Her obstetric history includes 3 abortions and 4 living children. Patient reports feeling movement. Diagnostic Test Results and Labs: - Blood group: A positive - Antibody screen: Negative - Hemoglobin: 10.8 g/dL - RPR: Non-reactive - Hepatitis B: Negative - HIV: Negative - Rubella: Equivocal. - Ultrasound scheduled for October 24, 2024. - Follow-up appointment in 4 weeks (approximately 24 weeks gestation) with Dr. Paniagua. - Genetic testing still pending due to insurance issues at [facility]. - Provided new lab order for patient to attempt genetic testing again. 11/14/24 <del>?</del> 24w 0d 86.693 kg 128/80 absent 24 145 active reports + FM. no PTL complaints. patient plans to go to [facility] for 2 week 12/12. No OB complaints. 3rd tri labs, ptl precaution, f/u MFM. rtc 4 week 12/05/24 <del>?</del> 27w 0d 88.451 kg 132/79 absent unknown 27 142 active leaving for [facility] 12/12. RTC 12/25, denies PTL complaints, reports good FM, No OB complaints, refill PNV/iron and claritin, start monitoring BS, rx glucometer,lancet and strips to [facility], discuss GDM diet, test 1 hr P meals and fasting in am, walk 4o minute daily, hydrate, ptl precaution, f/u mfm. 12/26 NORMA Calculator Estimated Delivery Date Method Current WG Current Estimate 03/06/25 Ultrasound #1 27w 0d Other Estimates 02/01/25 LMP (Uncertain) 31w 5d Notes Visit Date: 12/05/24 Last Updated by: Arcelia Joy CNM 12/05; cbc: hct: 32/11, platelet:wnl, 1hr gtt: 198, rpr;nr, A1c: 4.9, TDAP today sono 09/06/23: 14 weeks. EDC 03/06/25. (final NORMA. No Dates) Visit Date: 11/14/24 Last Updated by: Arcelia Joy CNM 39 yo . lmp 05/31/24. EDC 03/06/25, mfm 10/24: 21 week. EDC: 03/08/25. : A+,ABS-, rpr;;nr, rub NI, HIV-glucose:105, A1: 5.3, H/H: Office Procedures OB Clinic LOC & Office Proc's Nursing/Assessment Patient Status: Established Patient OB Clinic Nursing Assessment: Medication Reconciliation, Update PMH in EMR and Vital Signs OB Clinic Coordination of Care: Education Complex Pt/Fam, Consent,records obtained, informed consent, Lab and Imaging orders, Results/Orders obtained and Staff clarify orders Special Needs: Heart tones Miscellaneous Interventions: VIS to patient Established Patient Charge Established Patient Point Assignment: 125 Established Patient Point Charge: EP Level 4 (120-155) Injection/Vaccine Admin Admin 1st Vaccine: Yes Immunizations diphth,pertus(acell),tetanus 2.5 Lf unit-8 mcg-5 Lf/0.5mL IM syringe Performing Provider: Arcelia Joy CNM Performing Location: [facility] Administered by: Tana Boyce MA on 12/05/24 17:18 Dose Route Admin Location Dispensed Lot Number Expiration Date [facility] 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 review dates, ordered DM kit, patient will test 4 x daily. review dates, walk 40 minute daily. hydrate. continue PNV. note for travel. ptl precaution. rtc 3 week. OBc Additional Plan Follow Up: 2 Weeks (OBC)
== END 2024-12-05 10:52 | disposition home or self-care (01) ==
LOC: HODSOBC 09:09
PROVIDERS: PCP Advanced Practice Midwife; Referring Provider Advanced Practice Midwife; Supervising Provider Obstetrics & Gynecology; Visit Provider Advanced Practice Midwife
DX: O09.522 Supervision of elderly multigravida, second trimester (principal); Z3A.27 27 weeks gestation of pregnancy; Z23 Encounter for immunization
CPT/HCPCS: 90471; 90715; 99213; 99214; G0463

== ENCOUNTER 2025-01-08 09:37 | Outpatient (AMB) | payer BC, SELFPAY ==
[2025-01-08 09:57] VITALS: BP 127/79; PULSE 87; RESP 17; TEMP 36.4; O2SAT 97; BMI 33.0
--- NOTE | 2025-01-08 09:57 | AMB.OBVISIT ---
Vital Signs 01/08/25 09:57 Height 1.63 m Height Method Measured Weight 87.6 kg Weight Measurement Method Standing Scale BMI 33.0 BP 127/79 Blood Pressure Source Automatic Cuff Blood Pressure Location Right Upper Arm Position Sitting Respiration 17 Pulse 87 Pulse Source Monitor Temp 97.5 F Temp Source Temporal Artery Scan Pulse Oximetry (%) 97 Oxygen Delivery Method Room Air Allergies/Home Meds Allergies & Medications Allergies No Known Allergies Allergy (Verified 01/08/25 09:58) Medication Reconciliation vitamin-ferrous fumarate 28 mg iron-folic acid 800 mcg tablet ( Vitamins with Minerals) 1 tab PO QDAY #60 tabs 11/14/24 [Rx Confirmed 01/08/25] blood sugar diagnostic (Blood Glucose Test strips) #10 ea 12/05/24 [Rx Confirmed 01/08/25] blood-glucose meter #1 ea 12/05/24 [Rx Confirmed 01/08/25] ferrous sulfate 325 mg (65 mg iron) tablet 325 mg PO BID #60 tabs 12/05/24 [Rx Confirmed 01/08/25] lancets #100 ea 12/05/24 [Rx Confirmed 01/08/25] loratadine 10 mg tablet (Claritin) 10 mg PO QDAY PRN allergic symptoms #30 tabs 12/05/24 [Rx Confirmed 01/08/25] vitamin-ferrous fumarate 28 mg iron-folic acid 800 mcg tablet ( Vitamins with Minerals) 1 tab PO QDAY #60 tabs 12/05/24 [Rx Confirmed 01/08/25] ferrous sulfate 325 mg (65 mg iron) tablet 325 mg PO BID #60 tabs 01/08/25 [Rx] Intake Visit Data Collection New Patient or Established: Established Patient (seen at 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 1. Little interest or pleasure in doing things: not at all PHQ-9 8. Moving or speaking so slowly that other people could have noticed? - Or the opposite - being so fidgety or restless that you have been moving around a lot more than usual: not at all Source: Developed by Drs. Osvaldo Longoria, Margarita Hogue, Dakota Gore and colleagues, with an educational kathie from [employer]. 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 Her obstetric history includes 3 abortions and 4 living children. Patient reports feeling movement. Diagnostic Test Results and Labs: - Blood group: A positive - Antibody screen: Negative - Hemoglobin: 10.8 g/dL - RPR: Non-reactive - Hepatitis B: Negative - HIV: Negative - Rubella: Equivocal. - Ultrasound scheduled for October 24, 2024. - Follow-up appointment in 4 weeks (approximately 24 weeks gestation) with Dr. Paniagua. - Genetic testing still pending due to insurance issues at [facility]. - Provided new lab order for patient to attempt genetic testing again. 11/14/24 <del>?</del> 24w 0d 86.693 kg 128/80 absent 24 145 active reports + FM. no PTL complaints. patient plans to go to [facility] for 2 week 12/12. No OB complaints. 3rd tri labs, ptl precaution, f/u MFM. rtc 4 week 12/05/24 <del>?</del> 27w 0d 88.451 kg 132/79 absent unknown 27 142 active leaving for [place] 12/12. RTC 12/25, denies PTL complaints, reports good FM, No OB complaints, refill PNV/iron and claritin, start monitoring BS, rx glucometer,lancet and strips to [facility], discuss GDM diet, test 1 hr P meals and fasting in am, walk 4o minute daily, hydrate, ptl precaution, f/u mfm. 12/2601/08/25 <del>?</del> 31w 6d 87.6 kg 127/79 absent unknown 32 143 active fetus active, no PTL complaints, disability nV, discuss GTT and 3rd tri lab results, ordered glucometer,lancet and strip. discuss GDM diet, test 4 x dailt, schedule week NST/BPP, walk 40 min daily. TDAP [place], hydrate, keep f/u mfm appointmant NORMA Calculator Estimated Delivery Date Method Current WG Current Estimate 03/06/25 Ultrasound #1 31w 6d Other Estimates 02/01/25 LMP (Uncertain) 36w 4d Notes Visit Date: 01/08/25 Last Updated by: Arcelia Joy CNM 7/8: 1hr gtt: 192, A1c: 4.9, Visit Date: 12/05/24 Last Updated by: Arcelia Joy CNM 12/05; cbc: hct: 32/11, platelet:wnl, 1hr gtt: 198, rpr;nr, A1c: 4.9, TDAP today sono 09/06/23: 14 weeks. EDC 03/06/25. (final NORMA. No Dates) Visit Date: 11/14/24 Last Updated by: Arcelia Joy CNM 39 yo . lmp 05/31/24. EDC 03/06/25, mfm 10/24: 21 week. EDC: 03/08/25. : A+,ABS-, rpr;;nr, rub NI, HIV-glucose:105, A1: 5.3, H/H: Office Procedures OB Clinic LOC & Office Proc's Nursing/Assessment Patient Status: Established Patient OB Clinic Nursing Assessment: Medication Reconciliation, Update PMH in EMR and Vital Signs OB Clinic Coordination of Care: Complex Care and Chronic Disease 1-5, Consent,records obtained, informed consent, 4+ Authorizations needed and Results/Orders obtained Special Needs: Heart tones Miscellaneous Interventions: Blood/Urine Collection Established Patient Charge Established Patient Point Assignment: 150 Established Patient Point Charge: EP Level 4 (120-155) Assessment & Plan Diagnosis / Problem List (1) Diet controlled gestational diabetes mellitus (GDM) in second trimester: Status: Acute (2) Advanced maternal age (AMA), 40 years or greater: Status: Acute (3) Grand multiparity: Status: Acute Plan schedule week NST/BPP, order GDM kit, patient will p/u. test 4 x daily,fasting and 1 hr after meal. discuss GDM diet and values. walk 40 minute daily. fkc bid. hydrate. f/u with mfm as scheduled. sono for growth [place]. rtc 2 week for obc and TDAP Additional Plan Follow Up: 2 Weeks (obc)
== END 2025-01-08 10:50 | disposition home or self-care (01) ==
LOC: HODSOBC 09:37
PROVIDERS: PCP Advanced Practice Midwife; Referring Provider Advanced Practice Midwife; Supervising Provider Advanced Practice Midwife; Visit Provider Advanced Practice Midwife
DX: O09.523 Supervision of elderly multigravida, third trimester (principal); O09.893 Supervision of other high risk pregnancies, third trimester; O24.410 Gestational diabetes mellitus in pregnancy, diet controlled; Z3A.31 31 weeks gestation of pregnancy
CPT/HCPCS: 99214; G0463

== ENCOUNTER 2025-01-22 08:29 | Outpatient (AMB) | payer BC, SELFPAY ==
[2025-01-22 08:36] VITALS: BP 120/79; PULSE 87; RESP 18; TEMP 36.5; O2SAT 96; BMI 33.3
--- NOTE | 2025-01-22 08:36 | AMB.OBVISIT ---
Vital Signs 01/22/25 08:36 Height 1.63 m Height Method Stated Weight 88.677 kg Weight Measurement Method Standing Scale BMI 33.3 BP 120/79 Blood Pressure Source Automatic Cuff Blood Pressure Location Right Upper Arm Position Sitting Respiration 18 Pulse 87 Pulse Source Monitor Temp 97.7 F Temp Source Temporal Artery Scan Pulse Oximetry (%) 96 Oxygen Delivery Method Room Air Allergies/Home Meds Allergies & Medications Allergies No Known Allergies Allergy (Verified 01/22/25 08:37) Medication Reconciliation vitamin-ferrous fumarate 28 mg iron-folic acid 800 mcg tablet ( Vitamins with Minerals) 1 tab PO QDAY #60 tabs 11/14/24 [Rx Confirmed 01/22/25] blood sugar diagnostic (Blood Glucose Test strips) #10 ea 12/05/24 [Rx Confirmed 01/22/25] blood-glucose meter #1 ea 12/05/24 [Rx Confirmed 01/22/25] ferrous sulfate 325 mg (65 mg iron) tablet 325 mg PO BID #60 tabs 12/05/24 [Rx Confirmed 01/22/25] lancets #100 ea 12/05/24 [Rx Confirmed 01/22/25] loratadine 10 mg tablet (Claritin) 10 mg PO QDAY PRN allergic symptoms #30 tabs 12/05/24 [Rx Confirmed 01/22/25] vitamin-ferrous fumarate 28 mg iron-folic acid 800 mcg tablet ( Vitamins with Minerals) 1 tab PO QDAY #60 tabs 12/05/24 [Rx Confirmed 01/22/25] ferrous sulfate 325 mg (65 mg iron) tablet 325 mg PO BID #60 tabs 01/08/25 [Rx Confirmed 01/22/25] blood sugar diagnostic (Blood Glucose Test strips) #10 ea 01/22/25 [Rx] blood-glucose meter #1 ea 01/22/25 [Rx] lancets #100 ea 01/22/25 [Rx] Intake Visit Data Collection New Patient or Established: Established Patient (seen at [facility] within 3 years) Reason for Visit:: OBC Seen by Clinical Staff ONLY (RN/MA): No Sports Marketing Coordinator Required: No Do You Feel Safe at Home: Yes Authorities Contacted: N/A PCP or OBGYN visit in last 3 months: Yes Date of Last PCP or OBGYN visit: 01/16/25 Hx Now: Yes Are you currently on any form of Control: No Pain Present Currently: No Pain Scale Used: Cueto-Gonsalez/Numerical Pain scale:: 0 Smoking Status Smoking Status: Never smoker Questionnaires Covid-19 Vaccine Questionnaire Has patient been vacinated for Covid-19 Have you been vacinated for Covid-19: Yes PHQ-9 PHQ-2 Over the last 2 weeks, how often have you been bothered by any of the following problems? 1. Little interest or pleasure in doing things: not at all 2. Feeling down, depressed, or hopeless: not at all Total score: 0 PHQ-9 3. Trouble falling or staying asleep, or sleeping too much: Not at all 4. Feeling tired or having little energy: Not at all 5. Poor appetite or overeating: Not at all 6. Feeling bad about yourself - or that you are a failure or have let yourself or your family down: Not at all 7. Trouble concentrating on things, such as reading the newspaper or watching television: Not at all 8. Moving or speaking so slowly that other people could have noticed? - Or the opposite - being so fidgety or restless that you have been moving around a lot more than usual: not at all 9. Thoughts that you would be better off or of hurting yourself in some way: Not at all Total score: 0 If you checked off any problems, how difficult have these problems made it for you to do your work, take care of things at home, or get along with other people?: not difficult at all Source: Developed by Drs. Osvaldo Longoria, Margarita Hogue, Dakota Gore and colleagues, with an educational kathie from [employer]. 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 Her obstetric history includes 3 abortions and 4 living children. Patient reports feeling movement. Diagnostic Test Results and Labs: - Blood group: A positive - Antibody screen: Negative - Hemoglobin: 10.8 g/dL - RPR: Non-reactive - Hepatitis B: Negative - HIV: Negative - Rubella: Equivocal. - Ultrasound scheduled for October 24, 2024. - Follow-up appointment in 4 weeks (approximately 24 weeks gestation) with Dr. Paniagua. - Genetic testing still pending due to insurance issues at [facility]. - Provided new lab order for patient to attempt genetic testing again. 11/14/24 <del>?</del> 24w 0d 86.693 kg 128/80 absent 24 145 active reports + FM. no PTL complaints. patient plans to go to [facility] for 2 week 12/12. No OB complaints. 3rd tri labs, ptl precaution, f/u MFM6/. rtc 4 week 12/05/24 <del>?</del> 27w 0d 88.451 kg 132/79 absent unknown 27 142 active leaving for [facility] [address] 12/12. RTC 12/25, denies PTL complaints, reports good FM, No OB complaints, refill PNV/iron and claritin, start monitoring BS, rx glucometer,lancet and strips to [facility], discuss GDM diet, test 1 hr P meals and fasting in am, walk 4o minute daily, hydrate, ptl precaution, f/u mfm. 12/2601/08/25 <del>?</del> 31w 6d 87.6 kg 127/79 absent unknown 32 143 active fetus active, no PTL complaints, disability nV, discuss GTT and 3rd tri lab results, ordered glucometer,lancet and strip. discuss GDM diet, test 4 x dailt, schedule week NST/BPP, walk 40 min daily. TDAP NV, hydrate, keep f/u mfm appointmant 01/22/25 <del>?</del> 33w 6d 88.677 kg 120/79 absent cephalic 33 145 active Increased third trimester discomforts. Pressure. Patient thinks she lost her mucous plug. Reports good movement. Patient is concerned that lab did not give her the proper test strips for her glucometer. Denies leaking, bleeding, contractions. Reordered glucometer kit. Reviewed labor precautions. Increase fluids. I discussed GDM diet and logging P. Continue weekly NST BPP. She has a follow-up MFM in February. Increase fluids. Discussed labor precautions. Return in 2 weeks for GBS Reordered glucometer kit. Reviewed labor precautions. Increase fluids. I discussed GDM diet and logging P. Continue weekly NST BPP. She has a follow-up MFM in February. Increase fluids. Discussed labor precautions. Return in 2 weeks for GBS, Patient needs nuswab for GC/CT with GBS nv NORMA Calculator Estimated Delivery Date Method Current WG Current Estimate 03/06/25 Ultrasound #1 33w 6d Other Estimates 02/01/25 LMP (Uncertain) 38w 4d 03/06/25 Ultrasound #2 33w 6d Notes Visit Date: 01/22/25 Last Updated by: Arcelia Joy CNM 01/22: 39 yo poor dates. LMP 04/27/24. EDC: 02/01/25. 1st sono: 09/05/24: 14week. CEDC: 03/06/25. A+,abs-, rpr;;nr, rub: equivical, HBSAG-,HC-,HIV-, GC/CT:not done, GDM/diet anatomy scan: 10/24: IUP 21 week/confirm CEDC. 12/26 growth sono: IUP 30 week, EFW 44%. Visit Date: 01/08/25 Last Updated by: Arcelia Joy CNM 01/08: 1hr gtt: 192, A1c: 4.9, Visit Date: 12/05/24 Last Updated by: Arcelia Joy CNM 12/05; cbc: hct: 32/11, platelet:wnl, 1hr gtt: 198, rpr;nr, A1c: 4.9, TDAP today sono 09/06/23: 14 weeks. EDC 03/06/25. (final NORMA. No Dates) Visit Date: 11/14/24 Last Updated by: Arcelia Joy CNM 39 yo . lmp 05/31/24. EDC 03/06/25, mfm 10/24: 21 week. EDC: 03/08/25. : A+,ABS-, rpr;;nr, rub NI, HIV-glucose:105, A1: 5.3, H/H: Office Procedures OB Clinic LOC & Office Proc's Nursing/Assessment Patient Status: Established Patient OB Clinic Nursing Assessment: Medication Reconciliation, Update PMH in EMR and Vital Signs OB Clinic Coordination of Care: Complex Care and Chronic Disease 1-5, Consent,records obtained, informed consent, Education Simp Pt/Fam and Staff clarify orders Special Needs: Heart tones Established Patient Charge Established Patient Point Assignment: 115 Established Patient Point Charge: EP Level 3 (80-115) Assessment & Plan Diagnosis / Problem List (1) Diet controlled gestational diabetes mellitus (GDM) in second trimester: Status: Acute (2) Advanced maternal age (AMA), 40 years or greater: Status: Acute (3) Supervision of high risk , unspecified, second trimester: Status: Acute Plan Note for light duty. Discussed labor precautions. Discussed GDM diet. Continue weekly NST BPP. Induced at 39 weeks. I reordered patient's glucometer and glucose monitoring kit. Return in 2 weeks OB check. Do GC/CT/nuswab NV with GBS Additional Plan Follow Up: 2 Weeks (obc/gbs)
== END 2025-01-22 09:12 | disposition home or self-care (01) ==
LOC: HODSOBC 08:29
PROVIDERS: Supervising Provider Advanced Practice Midwife; Visit Provider Advanced Practice Midwife
DX: O09.523 Supervision of elderly multigravida, third trimester (principal); O09.893 Supervision of other high risk pregnancies, third trimester; O24.420 Gestational diabetes mellitus in childbirth, diet controlled; O36.5930 Maternal care for other known or suspected poor fetal growth, third trimester, not applicable or unspecified; Z3A.33 33 weeks gestation of pregnancy
CPT/HCPCS: 99213; G0463

== ENCOUNTER 2025-01-31 14:16 | Observation (INO) | payer BC, SELFPAY ==
[2025-01-31 14:22] VITALS: BMI 33.7
[2025-01-31 14:36] VITALS: BP 136/89; PULSE 109; RESP 16; TEMP 36.6; O2SAT 100
[2025-01-31 14:44] VITALS: BP 119/64; PULSE 93; PULSE 95; O2SAT 97
[2025-01-31 14:49] VITALS: PULSE 92; O2SAT 98
[2025-01-31 14:54] VITALS: BP 115/58; PULSE 89; O2SAT 97
[2025-01-31 14:59] VITALS: PULSE 93; O2SAT 99
[2025-01-31 15:01] VITALS: BP 136/89; PULSE 109; RESP 100; RESP 16; TEMP 36.6
== END 2025-01-31 15:30 | disposition home or self-care (01) ==
PROVIDERS: Admitting Provider Specialist; Visit Provider Specialist
DX: O26.893 Other specified pregnancy related conditions, third trimester (principal); Z3A.35 35 weeks gestation of pregnancy; M54.50 Low back pain, unspecified; R25.2 Cramp and spasm
CPT/HCPCS: 59025; 59899

== ENCOUNTER 2025-02-05 08:51 | Outpatient (AMB) | payer BC, SELFPAY ==
[2025-02-05 09:00] VITALS: BP 127/78; PULSE 90; RESP 18; TEMP 36.4; O2SAT 98; BMI 33.6
--- NOTE | 2025-02-05 09:00 | AMB.OBVISIT ---
Vital Signs 02/05/25 09:00 Height 1.63 m Height Method Stated Weight 88.961 kg Weight Measurement Method Standing Scale BMI 33.6 BP 127/78 Blood Pressure Source Automatic Cuff Blood Pressure Location Left Upper Arm Position Sitting Respiration 18 Pulse 90 Pulse Source Monitor Temp 97.6 F Temp Source Oral Pulse Oximetry (%) 98 Oxygen Delivery Method Room Air Allergies/Home Meds Allergies & Medications Allergies No Known Allergies Allergy (Verified 02/05/25 09:01) Medication Reconciliation vitamin-ferrous fumarate 28 mg iron-folic acid 800 mcg tablet ( Vitamins with Minerals) 1 tab PO QDAY #60 tabs 11/14/24 [Rx Confirmed 02/05/25] blood sugar diagnostic (Blood Glucose Test strips) #10 ea 12/05/24 [Rx Confirmed 02/05/25] blood-glucose meter #1 ea 12/05/24 [Rx Confirmed 02/05/25] ferrous sulfate 325 mg (65 mg iron) tablet 325 mg PO BID #60 tabs 12/05/24 [Rx Confirmed 02/05/25] lancets #100 ea 12/05/24 [Rx Confirmed 02/05/25] loratadine 10 mg tablet (Claritin) 10 mg PO QDAY PRN allergic symptoms #30 tabs 12/05/24 [Rx Confirmed 02/05/25] vitamin-ferrous fumarate 28 mg iron-folic acid 800 mcg tablet ( Vitamins with Minerals) 1 tab PO QDAY #60 tabs 12/05/24 [Rx Confirmed 02/05/25] ferrous sulfate 325 mg (65 mg iron) tablet 325 mg PO BID #60 tabs 01/08/25 [Rx Confirmed 02/05/25] blood sugar diagnostic (Blood Glucose Test strips) #10 ea 01/22/25 [Rx Confirmed 02/05/25] blood-glucose meter #1 ea 01/22/25 [Rx Confirmed 02/05/25] lancets #100 ea 01/22/25 [Rx Confirmed 02/05/25] Intake Visit Data Collection New Patient or Established: Established Patient (seen at [facility] within 3 years) Reason for Visit:: CARE Seen by Clinical Staff ONLY (RN/MA): No Client Services Coordinator Required: No Do You Feel Safe at Home: Yes Authorities Contacted: N/A PCP or OBGYN visit in last 3 months: Yes Hx Now: Yes Are you currently on any form of Control: No Pain Present Currently: No Pain Scale Used: Cueto-Gonsalez/Numerical Pain scale:: 0 Smoking Status Smoking Status: Never smoker Questionnaires Covid-19 Vaccine Questionnaire Has patient been vacinated for Covid-19 Have you been vacinated for Covid-19: Yes PHQ-9 PHQ-2 Over the last 2 weeks, how often have you been bothered by any of the following problems? 1. Little interest or pleasure in doing things: not at all 2. Feeling down, depressed, or hopeless: not at all Total score: 0 PHQ-9 3. Trouble falling or staying asleep, or sleeping too much: Not at all 4. Feeling tired or having little energy: Not at all 5. Poor appetite or overeating: Not at all 6. Feeling bad about yourself - or that you are a failure or have let yourself or your family down: Not at all 7. Trouble concentrating on things, such as reading the newspaper or watching television: Not at all 8. Moving or speaking so slowly that other people could have noticed? - Or the opposite - being so fidgety or restless that you have been moving around a lot more than usual: not at all 9. Thoughts that you would be better off or of hurting yourself in some way: Not at all Total score: 0 Source: Developed by Drs. Osvaldo Longoria, Margarita Hogue, Dakota Gore and colleagues, with an educational kathie from [employer]. 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 Her obstetric history includes 3 abortions and 4 living children. Patient reports feeling movement. Diagnostic Test Results and Labs: - Blood group: A positive - Antibody screen: Negative - Hemoglobin: 10.8 g/dL - RPR: Non-reactive - Hepatitis B: Negative - HIV: Negative - Rubella: Equivocal. - Ultrasound scheduled for October 24, 2024. - Follow-up appointment in 4 weeks (approximately 24 weeks gestation) with Dr. Paniagua. - Genetic testing still pending due to insurance issues at [facility]. - Provided new lab order for patient to attempt genetic testing again. 11/14/24 <del>?</del> 24w 0d 86.693 kg 128/80 absent 24 145 active reports + FM. no PTL complaints. patient plans to go to [facility] for 2 week 12/12. No OB complaints. 3rd tri labs, ptl precaution, f/u MFM. rtc 4 week 12/05/24 <del>?</del> 27w 0d 88.451 kg 132/79 absent unknown 27 142 active leaving for [facility] 12/12. RTC 12/25, denies PTL complaints, reports good FM, No OB complaints, refill PNV/iron and claritin, start monitoring BS, rx glucometer,lancet and strips to [facility], discuss GDM diet, test 1 hr P meals and fasting in am, walk 4o minute daily, hydrate, ptl precaution, f/u mfm. 12/2601/08/25 <del>?</del> 31w 6d 87.6 kg 127/79 absent unknown 32 143 active fetus active, no PTL complaints, disability nV, discuss GTT and 3rd tri lab results, ordered glucometer,lancet and strip. discuss GDM diet, test 4 x dailt, schedule week NST/BPP, walk 40 min daily. TDAP NV, hydrate, keep f/u mfm appointmant 01/22/25 <del>?</del> 33w 6d 88.677 kg 120/79 absent cephalic 33 145 active Increased third trimester discomforts. Pressure. Patient thinks she lost her mucous plug. Reports good movement. Patient is concerned that lab did not give her the proper test strips for her glucometer. Denies leaking, bleeding, contractions. Reordered glucometer kit. Reviewed labor precautions. Increase fluids. I discussed GDM diet and logging P. Continue weekly NST BPP. She has a follow-up MFM in February. Increase fluids. Discussed labor precautions. Return in 2 weeks for GBS Reordered glucometer kit. Reviewed labor precautions. Increase fluids. I discussed GDM diet and logging P. Continue weekly NST BPP. She has a follow-up MFM in February. Increase fluids. Discussed labor precautions. Return in 2 weeks for GBS, Patient needs nuswab for GC/CT with GBS nv 02/05/25 <del>?</del> 35w 6d 88.961 kg 127/78 absent cephalic 35 145 active CX:LCP/high. soft. 02/01 ER visit for back pain and vomiting. DC home, UA clear. fetus active. feels better today. denies leaking.no bleeding,no uc. sugares at goal, compliant with week NST/BPP and FKV. IOL 39week continue GDM diet, walk 40 minutes, continue monitoring BS and week NST/BPP. fkc bid, hydt=rate. comfort measure for back ache, gydrate. ptl precaution, rtc 1 week continue GDM diet, walk 40 minutes, continue monitoring BS and week NST/BPP. fkc bid, hydt=rate. comfort measure for back ache, gydrate. ptl precaution, rtc 1 week. GBS NORMA Calculator Estimated Delivery Date Method Current WG Current Estimate 03/06/25 Ultrasound #1 35w 6d Other Estimates 02/01/25 LMP (Uncertain) 40w 4d 03/06/25 Ultrasound #2 35w 6d Notes Visit Date: 01/22/25 Last Updated by: Arcelia Joy CNM 01/22: 39 yo poor dates. LMP 04/27/24. EDC: 02/01/25. 1st sono: 09/05/24: 14week. CEDC: 03/06/25. A+,abs-, rpr;;nr, rub: equivical, HBSAG-,HC-,HIV-, GC/CT:not done, GDM/diet anatomy scan: 10/24: IUP 21 week/confirm CEDC. 12/26 growth sono: IUP 30 week, EFW 44%. Visit Date: 01/08/25 Last Updated by: Arcelia Joy CNM 01/08: 1hr gtt: 192, A1c: 4.9, Visit Date: 12/05/24 Last Updated by: Arcelia Joy CNM 12/05; cbc: hct: 32/11, platelet:wnl, 1hr gtt: 198, rpr;nr, A1c: 4.9, TDAP today sono 09/06/23: 14 weeks. EDC 03/06/25. (final NORMA. No Dates) Visit Date: 11/14/24 Last Updated by: Arcelia Joy CNM 39 yo . lmp 05/31/24. EDC 03/06/25, m 10/24: 21 week. EDC: 03/08/25. : A+,ABS-, rpr;;nr, rub NI, HIV-glucose:105, A1: 5.3, H/H: / Office Procedures OB Clinic LOC & Office Proc's Nursing/Assessment Patient Status: Established Patient OB Clinic Nursing Assessment: Medication Reconciliation, Update PMH in EMR and Vital Signs OB Clinic Coordination of Care: AMA, Complex Care and Chronic Disease 1-5, Consent,records obtained, informed consent, Education Simp Pt/Fam, Lab and Imaging orders, Results/Orders obtained and Staff clarify orders Special Needs: Heart tones Miscellaneous Interventions: Culture Specimen Collection Established Patient Charge Established Patient Point Assignment: 170 Established Patient Point Charge: EP Level 5 (160-above) Assessment & Plan Diagnosis / Problem List (1) Diet controlled gestational diabetes mellitus (GDM) in second trimester: Status: Acute (2) Advanced maternal age (AMA), 40 years or greater: Status: Acute (3) Grand multiparity: Status: Acute Plan GBS today. Continue to monitor blood sugars. Continue GDM diet. Patient is compliant with sugars at goal. She will continue weekly NST BPP. Walking 45 minutes a day. Increase fluids. Comfort measures for back pain. Discussed labor precautions. Kick counts twice daily. Return a week OB check Additional Plan Follow Up: 1 Week (obc)
== END 2025-02-05 09:27 | disposition home or self-care (01) ==
LOC: HODSOBC 08:51
PROVIDERS: Supervising Provider Advanced Practice Midwife; Visit Provider Advanced Practice Midwife
DX: O09.523 Supervision of elderly multigravida, third trimester (principal); O09.43 Supervision of pregnancy with grand multiparity, third trimester; O09.893 Supervision of other high risk pregnancies, third trimester; O24.410 Gestational diabetes mellitus in pregnancy, diet controlled; O99.891 Other specified diseases and conditions complicating pregnancy; M54.9 Dorsalgia, unspecified; Z3A.35 35 weeks gestation of pregnancy; Z36.85 Encounter for antenatal screening for Streptococcus B
CPT/HCPCS: 99215; G0463

== ENCOUNTER 2025-02-12 10:50 | Outpatient (AMB) | payer BC, SELFPAY ==
[2025-02-12 11:13] VITALS: BP 123/72; PULSE 79; RESP 16; TEMP 36.9; O2SAT 95; BMI 34.0
--- NOTE | 2025-02-12 11:13 | OBCLNT_ITS ---
Vital Signs 02/12/25 11:13 Height 1.63 m Height Method Stated Weight 90.322 kg Weight Measurement Method Standing Scale BMI 34.0 BP 123/72 Blood Pressure Source Automatic Cuff Blood Pressure Location Left Upper Arm Position Sitting Respiration 16 Pulse 79 Pulse Source Monitor Temp 98.5 F Temp Source Oral Pulse Oximetry (%) 95 Oxygen Delivery Method Room Air Allergies/Home Meds Allergies & Medications Allergies No Known Allergies Allergy (Verified 02/12/25 11:14) Medication Reconciliation vitamin-ferrous fumarate 28 mg iron-folic acid 800 mcg tablet ( Vitamins with Minerals) 1 tab PO QDAY #60 tabs 11/14/24 [Rx Confirmed 02/12/25] blood sugar diagnostic (Blood Glucose Test strips) #10 ea 12/05/24 [Rx Confirmed 02/12/25] blood-glucose meter #1 ea 12/05/24 [Rx Confirmed 02/12/25] ferrous sulfate 325 mg (65 mg iron) tablet 325 mg PO BID #60 tabs 12/05/24 [Rx Confirmed 02/12/25] lancets #100 ea 12/05/24 [Rx Confirmed 02/12/25] loratadine 10 mg tablet (Claritin) 10 mg PO QDAY PRN allergic symptoms #30 tabs 12/05/24 [Rx Confirmed 02/12/25] vitamin-ferrous fumarate 28 mg iron-folic acid 800 mcg tablet ( Vitamins with Minerals) 1 tab PO QDAY #60 tabs 12/05/24 [Rx Confirmed 02/12/25] ferrous sulfate 325 mg (65 mg iron) tablet 325 mg PO BID #60 tabs 01/08/25 [Rx Confirmed 02/12/25] blood sugar diagnostic (Blood Glucose Test strips) #10 ea 01/22/25 [Rx Confirmed 02/12/25] blood-glucose meter #1 ea 01/22/25 [Rx Confirmed 02/12/25] lancets #100 ea 01/22/25 [Rx Confirmed 02/12/25] Intake Visit Data Collection New Patient or Established: Established Patient (seen at [facility] within 3 years) Reason for Visit:: CARE Seen by Clinical Staff ONLY (RN/MA): No 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 1. Little interest or pleasure in doing things: not at all 2. Feeling down, depressed, or hopeless: not at all Total score: 0 PHQ-9 3. Trouble falling or staying asleep, or sleeping too much: Not at all 4. Feeling tired or having little energy: Not at all 5. Poor appetite or overeating: Not at all 6. Feeling bad about yourself - or that you are a failure or have let yourself or your family down: Not at all 7. Trouble concentrating on things, such as reading the newspaper or watching television: Not at all 8. Moving or speaking so slowly that other people could have noticed? - Or the opposite - being so fidgety or restless that you have been moving around a lot more than usual: not at all 9. Thoughts that you would be better off or of hurting yourself in some way: Not at all Total score: 0 Source: Developed by Drs. Osvaldo Longoria, Margarita Hogue, Dakota Gore and colleagues, with an educational kathie from [employer]. 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 Her obstetric history includes 3 abortions and 4 living children. Patient reports feeling movement. Diagnostic Test Results and Labs: - Blood group: A positive - Antibody screen: Negative - Hemoglobin: 10.8 g/dL - RPR: Non-reactive - Hepatitis B: Negative - HIV: Negative - Rubella: Equivocal. - Ultrasound scheduled for October 24 5. - Follow-up appointment in 4 weeks (appr oximately 24 weeks gestation) with Dr. Paniagua. - Genetic testing still pending due to i nsurance issues at [facility]. - Provided new lab order for patient to attempt genetic test ing again. 11/14/24 -?-?-?-?-?-?-?-?-?-?-?-?- 24w 0d 86.693 kg 128/80 absent 24 145 ac tive reports + FM. no PTL complaints. patient plans to go to [facility] for 2 week 12/12. No OB complaints. 3rd tri labs, ptl precaution, f/u MFM/. rtc 4 week 12/05/24 -?-?-?-?-?-?-?-?-?-?-?-?- w 0d 88.451 kg 132/79 absent unknown 27 142 active leaving for [facility] 12/12. RTC 12/25, denies PTL complaints, reports good FM, No OB complaints, refill PNV/iron and claritin, start monitoring BS, rx glucometer,lancet and strips to [facility], discuss GDM diet, test 1 hr P meals and fasting in am, walk 4o minute daily, hydrate, ptl precaution, f/u mfm. 12/2601/08/25 -?-?-?-?-?-?-?-?-?-?-?-?- 31w 6d 87.6 kg 127/79 absent unknown 32 143 active fetus active, no PTL complaints, disability nV, disc uss GTT and 3rd tri lab results, ordered glucometer,lancet and strip. discuss GDM diet, test 4 x dailt, schedule week NST/BPP, walk 40 min daily. TDAP NV, hydrate, keep f/u mfm appointmant 01/22/25 -?-?-?-?-?-?-?-?-?-?-?-?- 33w 6d 88.677 kg 120/79 absent cephalic 33 145 active Increased third trimester discomforts. Pressure. Patient thinks she lost her mucous plug. Reports good movement. Patient is concerned that lab did not give her the proper test strips for her glucometer. Denies leaking, bleeding, contractions. Reordered glucometer kit. Reviewed labor precautions. Increase fluids. I discussed GDM diet and logging P. Continue weekly NST BPP. She has a follow-up MFM in February. Increase fluids. Discussed labor precautions. Return in 2 weeks for GBS Reordered glucometer kit. R lilianawed labor precautions. Increase fluids. I discussed GDM diet and logging P. Continue weekly NST BPP. She has a follow-up MFM in February. Increase fluids. Discussed labor precautions. Return in 2 weeks for GBS, Patient needs nuswab for GC/CT with GBS nv 02/05/25 -?-?-?-?-?-?-?-?-?-?-?-?- 35w 6d 88.961 kg 127/78 absent cephalic 35 145 active CX:LCP/high. soft. 02/01 ER visit for back pain and vomiting. DC home, UA clear. fetus active. feels better today. denies leaking.no bleeding,no uc. sugares at goal, compliant with week NST/BPP and FKV. IOL 39week continue GDM diet, walk 40 minutes, continue monitoring BS and week NST/BPP. fkc bid, hydt=rate. comfort measure for back ache, gydrate. ptl precaution, rtc 1 week continue GDM diet, walk 40 m inutes, continue monitoring BS and week NST/BPP. fkc bid, hydt=rate. comfort measure for back ache, gydrate. ptl precaution, rtc 1 week. GBS 02/12/25 -?-?-?-?-?-?-?-?-?-?-?-?- 36w 6d 90.322 kg 123/72 occasional cephalic 36 140 active last work day: 02/19/25, IOL at 39 week. denies bleeding, no leaking, increased pressure. fetus active. compliant with week NST/BPP, compliant with gdm diet and glucose monitoring. sugars at goal 90% F etal kick count twice a day. Continue GDM diet. Walk for 40 minutes a day. Continue weekly NST BPP. Increase fluids. Off work starting February 19. Induced at 39 weeks. Discussed labor precautions. Return week OB check NORMA Calculator Estimated Delivery Date Method Current WG Current Estimate 03/06/25 Ultrasound #1 36w 6d Other Estimates 02/01/25 LMP (Uncertain) 41w 4d 03/06/25 Ultrasound #2 36w 6d Notes Visit Date: 01/22/25 Last Updated by: Arcelia Joy CNM 01/22: 39 yo poor dates. LMP 04/27/24. EDC: 02/01/25. 1st sono: 09/05/24: 14week. CEDC: 03/06/25. A+,abs-, rpr;;nr, rub: equivical, HBSAG-,HC-,HIV-, GC/CT:not done, GDM/diet anatomy scan: 10/24: IUP 21 week/confirm CEDC. 12/26 growth sono: IUP 30 week, EFW 44%. Visit Date: 01/08/25 Last Updated by: Arcelia Joy CNM 01/08: 1hr gtt: 192, A1c: 4.9, Visit Date: 12/05/24 Last Updated by: Arcelia Joy CNM 12/05; cbc: hct: 32/11, platelet:wnl, 1hr gtt: 198, rpr;nr, A1c: 4.9, TDAP today sono 09/06/23: 14 weeks. EDC 03/06/25. (final NORMA. No Dates) Visit Date: 11/14/24 Last Updated by: Arcelia Joy CNM 39 yo . lmp 05/31/24. EDC 03/06/25, mfm 10/24: 21 week. EDC: 03/08/25. : A+,ABS-, rpr;;nr, rub NI, HIV-glucose:105, A1: 5.3, H/H: Office Procedures OB Clinic LOC & Office Proc's Nursing/Assessment Patient Status: Established Patient OB Clinic Nursing Assessment: Medication Reconciliation, Update PMH in EMR and Vital Signs OB Clinic Coordination of Care: AMA, Complex Care and Chronic Disease 1-5, Consent,records obtained, informed consent, Education Simp Pt/Fam, 1 Ins Authorization, Lab and Imaging orders, Results/Orders obtained and Staff clarify orders Special Needs: Heart tones Established Patient Charge Established Patient Point Assignment: 170 Established Patient Point Charge: EP Level 5 (160-above) Assessment & Plan Diagnosis / Problem List (1) Diet controlled gestational diabetes mellitus (GDM) in second trimester: Status: Acute (2) Advanced maternal age (AMA), 40 years or greater: Status: Acute Plan Continue with GDM diet. Discussed GBS swab. kick counts twice a day. Continue weekly NST BPP. Patient to continue monitoring her sugars 4 times a day. Discussed labor precautions and ER precautions. Increase fluids. Return week OB check. Induced at 39 weeks Additional Plan Follow Up: 1 Week (obc)
== END 2025-02-12 11:44 | disposition home or self-care (01) ==
LOC: HODSOBC 10:50
PROVIDERS: Supervising Provider Advanced Practice Midwife; Visit Provider Advanced Practice Midwife
DX: O09.523 Supervision of elderly multigravida, third trimester (principal); O09.893 Supervision of other high risk pregnancies, third trimester; O24.410 Gestational diabetes mellitus in pregnancy, diet controlled; Z3A.36 36 weeks gestation of pregnancy
CPT/HCPCS: 99215; G0463

== ENCOUNTER 2025-02-19 14:53 | Outpatient (AMB) | payer BC, SELFPAY ==
[2025-02-19 15:04] VITALS: BP 132/79; PULSE 102; RESP 20; TEMP 36.2; O2SAT 95; BMI 34.1
--- NOTE | 2025-02-19 15:04 | AMB.OBVISIT ---
Vital Signs 02/19/25 15:04 Height 1.63 m Height Method Stated Weight 90.718 kg Weight Measurement Method Standing Scale BMI 34.1 BP 132/79 H Blood Pressure Source Automatic Cuff Blood Pressure Location Left Upper Arm Position Sitting Respiration 20 Pulse 102 H Pulse Source Monitor Temp 97.2 F Temp Source Oral Pulse Oximetry (%) 95 Oxygen Delivery Method Room Air Allergies/Home Meds Allergies & Medications Allergies No Known Allergies Allergy (Verified 02/19/25 15:08) Medication Reconciliation vitamin-ferrous fumarate 28 mg iron-folic acid 800 mcg tablet ( Vitamins with Minerals) 1 tab PO QDAY #60 tabs 11/14/24 [Rx Confirmed 02/19/25] blood sugar diagnostic (Blood Glucose Test strips) #10 ea 12/05/24 [Rx Confirmed 02/19/25] blood-glucose meter #1 ea 12/05/24 [Rx Confirmed 02/19/25] ferrous sulfate 325 mg (65 mg iron) tablet 325 mg PO BID #60 tabs 12/05/24 [Rx Confirmed 02/19/25] lancets #100 ea 12/05/24 [Rx Confirmed 02/19/25] loratadine 10 mg tablet (Claritin) 10 mg PO QDAY PRN allergic symptoms #30 tabs 12/05/24 [Rx Confirmed 02/19/25] vitamin-ferrous fumarate 28 mg iron-folic acid 800 mcg tablet ( Vitamins with Minerals) 1 tab PO QDAY #60 tabs 12/05/24 [Rx Confirmed 02/19/25] ferrous sulfate 325 mg (65 mg iron) tablet 325 mg PO BID #60 tabs 01/08/25 [Rx Confirmed 02/19/25] blood sugar diagnostic (Blood Glucose Test strips) #10 ea 01/22/25 [Rx Confirmed 02/19/25] blood-glucose meter #1 ea 01/22/25 [Rx Confirmed 02/19/25] lancets #100 ea 01/22/25 [Rx Confirmed 02/19/25] Intake Visit Data Collection New Patient or Established: Established Patient (seen at [facility] within 3 years) Reason for Visit:: CARE Seen by Clinical Staff ONLY (RN/MA): No Ticker Wirer Required: No Do You Feel Safe at Home: Yes Authorities Contacted: N/A PCP or OBGYN visit in last 3 months: Yes Hx Now: Yes Are you currently on any form of Control: No Pain Present Currently: No Pain Scale Used: Cueto-Gonsalez/Numerical Pain scale:: 0 Smoking Status Smoking Status: Never smoker Questionnaires Covid-19 Vaccine Questionnaire Has patient been vacinated for Covid-19 Have you been vacinated for Covid-19: Yes PHQ-9 PHQ-2 Over the last 2 weeks, how often have you been bothered by any of the following problems? 1. Little interest or pleasure in doing things: not at all 2. Feeling down, depressed, or hopeless: not at all Total score: 0 PHQ-9 3. Trouble falling or staying asleep, or sleeping too much: Not at all 4. Feeling tired or having little energy: Not at all 5. Poor appetite or overeating: Not at all 6. Feeling bad about yourself - or that you are a failure or have let yourself or your family down: Not at all 7. Trouble concentrating on things, such as reading the newspaper or watching television: Not at all 8. Moving or speaking so slowly that other people could have noticed? - Or the opposite - being so fidgety or restless that you have been moving around a lot more than usual: not at all 9. Thoughts that you would be better off or of hurting yourself in some way: Not at all Total score: 0 Source: Developed by Drs. Osvaldo Longoria, Margarita Hogue, Dakota Gore and colleagues, with an educational kathie from [employer]. 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 Her obstetric history includes 3 abortions and 4 living children. Patient reports feeling movement. Diagnostic Test Results and Labs: - Blood group: A positive - Antibody screen: Negative - Hemoglobin: 10.8 g/dL - RPR: Non-reactive - Hepatitis B: Negative - HIV: Negative - Rubella: Equivocal. - Ultrasound scheduled for October 24, 2024. - Follow-up appointment in 4 weeks (approximately 24 weeks gestation) with Dr. Paniagua. - Genetic testing still pending due to insurance issues at [facility]. - Provided new lab order for patient to attempt genetic testing again. 11/14/24 <del>?</del> 24w 0d 86.693 kg 128/80 absent 24 145 active reports + FM. no PTL complaints. patient [facility] 12/12. No OB complaints. 3rd tri labs, ptl precaution, f/u MFM. rtc 4 week 12/05/24 <del>?</del> 27w 0d 88.451 kg 132/79 absent unknown 27 142 active leaving for [facility] 12/12. RTC 12/25, denies PTL complaints, reports good FM, No OB complaints, refill PNV/iron and claritin, start monitoring BS, rx glucometer,lancet and strips to [facility], discuss GDM diet, test 1 hr P meals and fasting in am, walk 4o minute daily, hydrate, ptl precaution, f/u mfm. 12/2601/08/25 <del>?</del> 31w 6d 87.6 kg 127/79 absent unknown 32 143 active fetus active, no PTL complaints, disability nV, discuss GTT and 3rd tri lab results, ordered glucometer,lancet and strip. discuss GDM diet, test 4 x dailt, schedule week NST/BPP, walk 40 min daily. TDAP NV, hydrate, keep f/u mfm appointmant 01/22/25 <del>?</del> 33w 6d 88.677 kg 120/79 absent cephalic 33 145 active Increased third trimester discomforts. Pressure. Patient thinks she lost her mucous plug. Reports good movement. Patient is concerned that lab did not give her the proper test strips for her glucometer. Denies leaking, bleeding, contractions. Reordered glucometer kit. Reviewed labor precautions. Increase fluids. I discussed GDM diet and logging P. Continue weekly NST BPP. She has a follow-up MFM in February. Increase fluids. Discussed labor precautions. Return in 2 weeks for GBS Reordered glucometer kit. Reviewed labor precautions. Increase fluids. I discussed GDM diet and logging P. Continue weekly NST BPP. She has a follow-up MFM in February. Increase fluids. Discussed labor precautions. Return in 2 weeks for GBS, Patient needs nuswab for GC/CT with GBS nv 02/05/25 <del>?</del> 35w 6d 88.961 kg 127/78 absent cephalic 35 145 active CX:LCP/high. soft. 02/01 ER visit for back pain and vomiting. DC home, UA clear. fetus active. feels better today. denies leaking.no bleeding,no uc. sugares at goal, compliant with week NST/BPP and FKV. IOL 39week continue GDM diet, walk 40 minutes, continue monitoring BS and week NST/BPP. fkc bid, hydt=rate. comfort measure for back ache, gydrate. ptl precaution, rtc 1 week continue GDM diet, walk 40 minutes, continue monitoring BS and week NST/BPP. fkc bid, hydt=rate. comfort measure for back ache, gydrate. ptl precaution, rtc 1 week. GBS 02/12/25 <del>?</del> 36w 6d 90.322 kg 123/72 occasional cephalic 36 140 active last work day: 02/19/25, IOL at 39 week. denies bleeding, no leaking, increased pressure. fetus active. compliant with week NST/BPP, compliant with gdm diet and glucose monitoring. sugars at goal 90% kick count twice a day. Continue GDM diet. Walk for 40 minutes a day. Continue weekly NST BPP. Increase fluids. Off work starting February 19. Induced at 39 weeks. Discussed labor precautions. Return week OB check 02/19/25 <del>?</del> 37w 6d 90.718 kg 132/79 occasional cephalic 37 145 active 0 SVE: LCP, high, soft. Sugars at goal per patient. Reports good movement. Patient is compliant with GDM diet. She is also compliant with weekly NST BPP. Denies leaking, denies bleeding. Increased pressure Continue weekly NST BPP. Kick counts twice a day. Continue GDM diet and glucose monitoring. Discussed labor precautions and danger signs and symptoms. Continue weekly NST BPP. Kick counts twice a day. Continue GDM diet and glucose monitoring. Discussed labor precautions and danger signs and symptoms. disability started on 02/16/25. return to work 6 week PP Continue weekly NST BPP. Kick counts twice a day. Continue GDM diet and glucose monitoring. Discussed labor precautions and danger signs and symptoms. disability started on 02/16/25. return to work 6 week PP. IOL 02/27/25 NORMA Calculator Estimated Delivery Date Method Current WG Current Estimate 03/06/25 Ultrasound #1 37w 6d Other Estimates 02/01/25 LMP (Uncertain) 42w 4d 03/06/25 Ultrasound #2 37w 6d Notes Visit Date: 01/22/25 Last Updated by: Arcelia Joy CNM 01/22: 39 yo poor dates. LMP 04/27/24. EDC: 02/01/25. 1st sono: 09/05/24: 14week. CEDC: 03/06/25. A+,abs-, rpr;;nr, rub: equivical, HBSAG-,HC-,HIV-, GC/CT:not done, GDM/diet anatomy scan: 10/24: IUP 21 week/confirm CEDC. 12/26 growth sono: IUP 30 week, EFW 44%. Visit Date: 01/08/25 Last Updated by: Arcelia Joy CNM 01/08: 1hr gtt: 192, A1c: 4.9, Visit Date: 12/05/24 Last Updated by: Arcelia Joy CNM 12/05; cbc: hct: 32/11, platelet:wnl, 1hr gtt: 198, rpr;nr, A1c: 4.9, TDAP today sono 09/06/23: 14 weeks. EDC 03/06/25. (final NORMA. No Dates) Visit Date: 11/14/24 Last Updated by: Arcelia Joy, SURINDER 39 yo . lmp 05/31/24. EDC 03/06/25, mfm 10/24: 21 week. EDC: 03/08/25. : A+,ABS-, rpr;;nr, rub NI, HIV-glucose:105, A1: 5.3, H/H: Office Procedures OB Clinic LOC & Office Proc's Nursing/Assessment Patient Status: Established Patient OB Clinic Nursing Assessment: Medication Reconciliation, Update PMH in EMR and Vital Signs OB Clinic Coordination of Care: AMA, Complex Care and Chronic Disease 1-5, Consent,records obtained, informed consent, Education Simp Pt/Fam, Lab and Imaging orders and Staff clarify orders Special Needs: Heart tones Established Patient Charge Established Patient Point Assignment: 150 Established Patient Point Charge: EP Level 4 (120-155) Assessment & Plan Diagnosis / Problem List (1) Diet controlled gestational diabetes mellitus (GDM) in second trimester: Status: Acute (2) Advanced maternal age (AMA), 40 years or greater: Status: Acute (3) Grand multiparity: Status: Acute Plan disability form. start disability February 16, 2025. Discussed labor precautions and kick count. Patient scheduled for induction of labor February 27. Continue to monitor sugars. Continue to comply with GDM diet. Continue weekly NST BPP. Discussed kick count twice a day. And I reviewed with patient. Walk and be active. Discussed danger signs and symptoms and ER precautions. Return in a week for OB check Additional Plan Follow Up: 1 Week (OBC)
== END 2025-02-19 15:53 | disposition home or self-care (01) ==
LOC: HODSOBC 14:53
PROVIDERS: Supervising Provider Advanced Practice Midwife; Visit Provider Advanced Practice Midwife
DX: O09.523 Supervision of elderly multigravida, third trimester (principal); O09.43 Supervision of pregnancy with grand multiparity, third trimester; O09.893 Supervision of other high risk pregnancies, third trimester; O24.410 Gestational diabetes mellitus in pregnancy, diet controlled; Z3A.37 37 weeks gestation of pregnancy
CPT/HCPCS: 99214; G0463

== ENCOUNTER 2025-02-20 11:02 | Outpatient (RCR) | payer BC, SELFPAY ==
--- NOTE | 2025-01-16 10:55 | XR_ITS ---
Examination: Biophysical profile, ultrasound Date and time of exam: January 16, 2025 1059 hours INDICATIONS: Diagnosis advanced maternal age, diagnosis gestational diabetes Technique: Multiple transabdominal sonographic images of the pelvis abdomen obtained. Attention is directed to the breathing movement, gross body movement, amniotic fluid volume and tone. Findings: Amniotic fluid index 12.7 cm Total biophysical profile is 8 of 8. breathing movement is 2. Gross body movement is 2. tone is 2. Qualitative amniotic fluid volume is 2 Impression: Biophysical profile is 8 of 8.
[2025-01-16 11:18] VITALS: BP 114/61; PULSE 87; RESP 16; TEMP 36.7
--- NOTE | 2025-01-23 10:50 | XR_ITS ---
Examination: Biophysical profile, ultrasound Date and time of exam: January 23, 2025 1110 hours INDICATIONS: Diagnosis advanced maternal age, diagnosis gestational diabetes Technique: Multiple transabdominal sonographic images of the pelvis abdomen obtained. Attention is directed to the breathing movement, gross body movement, amniotic fluid volume and tone. Findings: Amniotic fluid index 8.9 cm Total biophysical profile is 8 of 8. breathing movement is 2. Gross body movement is 2. tone is 2. Qualitative amniotic fluid volume is 2 Impression: Biophysical profile is 8 of 8.
[2025-01-23 11:30] VITALS: BP 109/58; PULSE 99; RESP 16; TEMP 36.9
--- NOTE | 2025-01-30 09:10 | XR_ITS ---
Examination: Biophysical profile, ultrasound Date and time of exam: January 30, 2025 0911 hours Diagnosis advanced maternal age, diagnosis gestational diabetes Technique: Multiple transabdominal sonographic images of the pelvis abdomen obtained. Attention is directed to the breathing movement, gross body movement, amniotic fluid volume and tone. Findings: Amniotic fluid index 15.1 cm Total biophysical profile is 8 of 8. breathing movement is 2. Gross body movement is 2. tone is 2. Qualitative amniotic fluid volume is 2 Impression: Biophysical profile is 8 of 8.
[2025-01-30 09:43] VITALS: BP 115/56; PULSE 94; RESP 16; TEMP 36.7
--- NOTE | 2025-02-06 11:01 | XR_ITS ---
Examination: Biophysical profile, ultrasound Date and time of exam: February 06, 2025 1132 hours INDICATIONS: Diagnosis advanced maternal age, diagnosis gestational diabetes Technique: Multiple transabdominal sonographic images of the pelvis abdomen obtained. Attention is directed to the breathing movement, gross body movement, amniotic fluid volume and tone. Findings: Amniotic fluid index 10.6 cm Total biophysical profile is 8 of 8. breathing movement is 2. Gross body movement is 2. tone is 2. Qualitative amniotic fluid volume is 2 Impression: Biophysical profile is 8 of 8.
[2025-02-06 11:59] VITALS: BP 110/70; PULSE 80; RESP 16; TEMP 36.7
--- NOTE | 2025-02-13 10:47 | XR_ITS ---
Examination: Biophysical profile, ultrasound Date and time of exam: February 13, 2025 1048 hours INDICATIONS: Diagnosis advanced maternal age, diagnosis gestational diabetes Technique: Multiple transabdominal sonographic images of the pelvis abdomen obtained. Attention is directed to the breathing movement, gross body movement, amniotic fluid volume and tone. Findings: Amniotic fluid index 11.2 cm Total biophysical profile is 8 of 8. breathing movement is 2. Gross body movement is 2. tone is 2. Qualitative amniotic fluid volume is 2 Impression: Biophysical profile is 8 of 8.
[2025-02-13 11:14] VITALS: BP 115/68; PULSE 80; RESP 16; TEMP 36.7
--- NOTE | 2025-02-20 11:12 | XR_ITS ---
Examination: Biophysical profile, ultrasound Date and time of exam: February 20, 2025 1118 hours INDICATIONS: Diagnosis advanced maternal age, diagnosis gestational diabetes Technique: Multiple transabdominal sonographic images of the pelvis abdomen obtained. Attention is directed to the breathing movement, gross body movement, amniotic fluid volume and tone. Findings: Amniotic fluid index 9.1 cm Total biophysical profile is 8 of 8. breathing movement is 2. Gross body movement is 2. tone is 2. Qualitative amniotic fluid volume is 2 Impression: Biophysical profile is 8 of 8.
[2025-02-20 11:35] VITALS: BP 118/56; PULSE 88; RESP 16
== END 2025-02-20 23:59 | disposition home or self-care (01) ==
LOC: S4S1 11:02
PROVIDERS: PCP Internal Medicine; Referring Provider Advanced Practice Midwife; Visit Provider Advanced Practice Midwife
DX: O24.410 Gestational diabetes mellitus in pregnancy, diet controlled (principal); O09.523 Supervision of elderly multigravida, third trimester; Z3A.38 38 weeks gestation of pregnancy
CPT/HCPCS: 59025; 76819

== ENCOUNTER 2025-02-26 17:02 | Outpatient (CLI) | payer BC, SELFPAY ==
[2025-02-26] VITALS (59 sets, daily range): BP systolic 111–137; BP diastolic 63–94; PULSE 65–90; RESP 16–98; TEMP 36.7–36.8; O2SAT 94–99; BMI 34.3
--- NOTE | 2025-02-26 17:21 | XR_ITS ---
Examination: Complete OB ultrasound greater than 14 weeks Date and time of exam: February 26, 2025, 1731 hours INDICATIONS: -induced hypertension today Findings: Viable intrauterine single fetus with single amniotic sac presentation cephalic Cardiac motion 131 BPM. Placenta fundal grade 3. Umbilical cord insertion 3 vessel seen. Amniotic fluid index 8.3 cm spine anterior maternal left Cervix 3.8 cm Ovaries obscured by bowel gas. Composite estimated gestational age based on BPD, head circumference, abdominal circumference, femur length is 37 weeks 3 days Estimated weight 3357.5 g. Survey of intracranial anatomy, spinal anatomy, abdominal anatomy, four-chamber heart performed with no abnormalities identified. Impression: Viable intrauterine gestation cephalic presentation..
--- NOTE | 2025-02-26 17:21 | XR_ITS ---
Examination: Biophysical profile, ultrasound Date and time of exam: February 26, 2025, 1755 hours INDICATIONS: -induced hypertension today Technique: Multiple transabdominal sonographic images of the pelvis abdomen obtained. Attention is directed to the breathing movement, gross body movement, amniotic fluid volume and tone. Findings: Amniotic fluid index 10.5 cm Total biophysical profile is 8 of 8. breathing movement is 2. Gross body movement is 2. tone is 2. Qualitative amniotic fluid volume is 2 Impression: Biophysical profile is 8 of 8.
[2025-02-26 19:02] LABS: Collection Type, Urine Clean Catch
[2025-02-26 19:04] LABS: Basophils # (Auto) 0.0 Thou/mm3 (0.0-0.2); Basophils % (Auto) 0 % (0-2.5); Eosinophils # (Auto) 0.1 Thou/mm3 (0.0-0.5); Eosinophils % (Auto) 1 % (0-10); Hematocrit 33.3 % (36.0-46.0); Hemoglobin 11.6 g/dL (12.0-16.0); Immature Granulocytes Auto 0.02 Thou/mm3 (0.00-0.00); Lymphocytes # (Auto) 1.8 Thou/mm3 (1.0-4.8); Lymphocytes % (Auto) 20 % (10-50); Mean Corpuscular HGB Conc 34.8 g/dl (31.0-37.0); Mean Corpuscular Hemoglobin 32.9 pg (25.0-35.0); Mean Corpuscular Volume 94 fL (80-100); Monocytes # (Auto) 0.6 Thou/mm3 (0.0-0.8); Monocytes % (Auto) 6 % (0-12); Neutrophils # (Auto) 6.5 Thou/mm3 (1.8-7.7); Neutrophils % (Auto) 72 % (37-80); Nucleated Red Blood Cell # 0.00 Thou/mm3 (0.00-0.00); Nucleated Red Blood Cell % 0 /100 WBC (0); Platelet Count 204 Thou/mm3 (140-440); RDW Standard Deviation 46.3 fL (36.4-46.3); Red Blood Count 3.53 Miln/mm3 (4.00-5.20); White Blood Count 9.0 Thou/mm3 (3.6-11.0)
[2025-02-26 19:11] LABS: Bilirubin,Urine Negative (Negative); Blood,Urine 1+ (Negative); Clarity,Urine Clear (Clear/Hazy); Color,Urine Lt-Yellow (Lt Yel-Yel); Glucose, Urine Negative (Negative); Ketones,Urine Negative (Negative); Leukocyte Esterase,Urine Positive (Negative); Nitrite,Urine Negative (Negative); PH,Urine 6.0 (5.0-7.0); Protein,Urine 1+ (Neg - Trace); RBC,Urine 13 /hpf (0-3); Specific Gravity,Urine 1.025 (1.001-1.035); Squamous Epithelial Cell,Urine 11 /hpf (0-5); Urobilinogen,Urine Negative mg/dL (0.0-1.0); WBC,Urine 3 /hpf (0-5)
[2025-02-26 19:26] LABS: Creatinine,Random Urine 106 mg/dL (30-125); Protein Total, Random Urine 59 mg/dL (1-14)
[2025-02-26 19:34] LABS: Fibrinogen 398 mg/dL (175-375); INR 0.9 (0.9-1.3); Partial Thromboplastin Time 25.1 Seconds (22.0-36.0); Prothrombin Time 10.0 Seconds (9.0-12.2)
[2025-02-26 20:02] LABS: Alanine Aminotransferase < 7 U/L (10-49); Albumin, Serum 3.7 gm/dL (3.5-5.0); Albumin/Globulin Ratio 1.3 (1.2-2.2); Alkaline Phosphatase 126 U/L (46-116); Anion Gap 10 (7-16); Aspartate Amino Transferase 14 U/L (0-34); BUN/Creatinine Ratio 12 Ratio (12-20); Bilirubin,Total 0.4 mg/dL (0.3-1.2); Blood Urea Nitrogen 6 mg/dL (9-23); Calcium 9.3 mg/dL (8.3-10.6); Calcium (Corrected) 9.5 mg/dL (8.5-10.1); Carbon Dioxide 21.8 mMol/L (20.0-31.0); Chloride 107 mMol/L (98-107); Creatinine (Component) 0.5 mg/dL (0.6-1.3); Estimated Creatinine Clearance 161.5 mL/min (>60); Globulin 2.9 gm/dL (2.3-3.5); Glucose 81 mg/dL (74-106); LDH (Lactate Dehydrogenase) 157 U/L (120-246); Osmolality,Calculated 274 (275-295); Potassium 4.0 mMol/L (3.4-5.1); Sodium 139 mMol/L (136-145); Total Protein 6.6 gm/dL (5.7-8.2); Uric Acid 5.0 mg/dL (3.1-7.8); eGFR > 60 See Note
== END 2025-02-26 21:07 | disposition home or self-care (01) ==
LOC: CNST 17:07 → S4SX 17:07
PROVIDERS: Referring Provider Obstetrics & Gynecology; Visit Provider Obstetrics & Gynecology
DX: O16.3 Unspecified maternal hypertension, third trimester (principal); Z3A.37 37 weeks gestation of pregnancy
CPT/HCPCS: 36415; 59025; 76805; 76819; 80053; 81001; 82570; 83615; 84156; 84550; 85025; 85384; 85610; 85730

== ENCOUNTER 2025-02-28 08:56 | Inpatient (IN) | payer BC, SELFPAY ==
[2025-02-28] VITALS (13 sets, daily range): BP systolic 112–152; BP diastolic 61–84; PULSE 61–87; RESP 16–18; TEMP 36.7–37.7; BMI 34.2
--- NOTE | 2025-02-28 10:56 | XR_ITS ---
Examination: Complete OB ultrasound greater than 14 weeks Date and time of exam: February 28, 2025, 1206 hours INDICATIONS: Labor induction today Findings: Viable intrauterine single fetus with single amniotic sac presentation cephalic Cardiac motion 1:30 BPM Placenta fundal posterior grade 3 Umbilical cord insertion 3 vessel seen Amniotic fluid 11.3 cm spine maternal left anterior Cervix 4.2 cm. Composite estimated gestational age based on BPD, head circumference, abdominal circumference, femur length is 36 weeks 4 days Estimated weight 3034 g. Survey of intracranial anatomy, spinal anatomy, abdominal anatomy, four-chamber heart performed with no abnormalities identified. Impression: Viable intrauterine gestation cephalic presentation.
[2025-02-28 11:30] LABS: Basophils # (Auto) 0.0 Thou/mm3 (0.0-0.2); Basophils % (Auto) 0 % (0-2.5); Eosinophils # (Auto) 0.1 Thou/mm3 (0.0-0.5); Eosinophils % (Auto) 1 % (0-10); Hematocrit 33.0 % (36.0-46.0); Hemoglobin 11.5 g/dL (12.0-16.0); Immature Granulocytes Auto 0.03 Thou/mm3 (0.00-0.00); Lymphocytes # (Auto) 1.5 Thou/mm3 (1.0-4.8); Lymphocytes % (Auto) 17 % (10-50); Mean Corpuscular HGB Conc 34.8 g/dl (31.0-37.0); Mean Corpuscular Hemoglobin 32.1 pg (25.0-35.0); Mean Corpuscular Volume 92 fL (80-100); Monocytes # (Auto) 0.7 Thou/mm3 (0.0-0.8); Monocytes % (Auto) 8 % (0-12); Neutrophils # (Auto) 6.4 Thou/mm3 (1.8-7.7); Neutrophils % (Auto) 73 % (37-80); Nucleated Red Blood Cell # 0.00 Thou/mm3 (0.00-0.00); Nucleated Red Blood Cell % 0 /100 WBC (0); Platelet Count 205 Thou/mm3 (140-440); RDW Standard Deviation 45.6 fL (36.4-46.3); Red Blood Count 3.58 Miln/mm3 (4.00-5.20); White Blood Count 8.8 Thou/mm3 (3.6-11.0)
[2025-02-28 11:32] LABS: Amphetamine/Metham Scrn,Ur OB Negative (Negative); Benzoylecgonine Screen, Ur OB Negative (Negative); Opiate Screen,Urine OB Negative (Negative); THC Screen,Urine OB Negative (Negative)
[2025-02-28 12:25] LABS: Syphilis Nonreactive (Nonreactive)
[2025-02-28 13:25] LABS: Fibrinogen 419 mg/dL (175-375); INR 0.9 (0.9-1.3); Partial Thromboplastin Time 24.1 Seconds (22.0-36.0); Prothrombin Time 10.2 Seconds (9.0-12.2)
[2025-02-28 13:34] LABS: Alanine Aminotransferase 7 U/L (10-49); Albumin, Serum 3.7 gm/dL (3.5-5.0); Albumin/Globulin Ratio 1.4 (1.2-2.2); Alkaline Phosphatase 124 U/L (46-116); Anion Gap 12 (7-16); Aspartate Amino Transferase 13 U/L (0-34); BUN/Creatinine Ratio 13 Ratio (12-20); Bilirubin,Total 0.5 mg/dL (0.3-1.2); Blood Urea Nitrogen 8 mg/dL (9-23); Calcium 9.8 mg/dL (8.3-10.6); Calcium (Corrected) 10.0 mg/dL (8.5-10.1); Carbon Dioxide 20.4 mMol/L (20.0-31.0); Chloride 107 mMol/L (98-107); Creatinine (Component) 0.6 mg/dL (0.6-1.3); Estimated Creatinine Clearance 134.4 mL/min (>60); Globulin 2.6 gm/dL (2.3-3.5); Glucose 103 mg/dL (74-106); Osmolality,Calculated 275 (275-295); Potassium 3.4 mMol/L (3.4-5.1); Sodium 139 mMol/L (136-145); Total Protein 6.3 gm/dL (5.7-8.2); eGFR > 60 See Note
[2025-02-28 16:43] LABS: Uric Acid 5.6 mg/dL (3.1-7.8)
[2025-02-28 17:25] LABS: Chlamydia trachomatis PCR Negative (Not Detect); Neisseria Gonorrhoeae DNA PCR Negative (Not Detect); Trichomonas Negative (Negative)
[2025-02-28] MEDS: RINGERS LACTATED 1000 ML 1,000 ML 100 ML IV (18:35)
--- NOTE | 2025-02-28 20:21 | PD.LDHP ---
Documentation for date of: 02/28/25 OB Labor/Induct. HPI History of Present Illness Chief complaint: induction : 9 Para: 4 Term pregnancies: 4 pregnancies: 0 Living children: 4 History of Abortions: Spontaneous and Elective: 4 History of Vaginal deliveries: 4 History of sections: No History of : No Date of last menstrual period: 05/31/24 NORMA: 03/06/25 Gestational Age (weeks): 39 Gestational Age (days): 1 Gestational age based on last menstrual period: 39 Indication for induction: medical complication (diabetes, mild HTN) History of present illness: 39-year-old 9 para 4 admit for induction of labor. Patient is been followed at [facility] OB clinic. Her first visit was in the first trimester. She has last period April 27, 2025. Estimated due date February 01, 2025. Patient has poor dates. First ultrasound was September 05. Patient was 14 weeks and this change EDC to 03/06/2025. Patient's MFM sono's had shown good growth and consistent with this date. Patient denies social habits. Denies surgery. Denies any coexisting chronic illness. Patient has a history of abnormal 1 hour GTT and her 3-hour was abnormal as well. She has also had labile blood pressures that have been up off-and-on and so she was admitted for induction at 39 weeks. Patient is A+, antibody screen negative, RPR nonreactive, rubella nonimmune. Hepatitis B negative HIV negative GC chlamydia were negative. Hep C negative. And GBS was negative. Reports movement. Denies contractions History of Present Dating criteria: LMP confirmed by 1st trimester US Ultrasounds: normal 1st trimester US and normal mid trimester US Obstetrical complications: gestational diabetes and gestational hypertension Medical complications: none Labs Labs: Negative: RPR, Hepatitis B, Rubella Titre, HIV and Group Beta Strep and Unknown: Chlamydia, Gonorrhea, Herpes Type 1, Herpes Type 2 and Covid-19 Review of Systems Review of Systems Systems Reviewed: All systems reviewed, normal except as documented Past Medical History Surgical History SURGICAL: Negative Section Meds Home Medications and Allergies Home Medications ?Medication ?Instructions ?Recorded ?Confirmed ?Type aspirin 81 mg tablet 81 mg PO QDAY 02/26/25 02/26/25 History Allergies Allergy/AdvReac Type Severity Reaction Status Date / Time No Known Allergies Allergy Verified 02/26/25 17:28 OB Exam Physical Exam Vital signs: Temp Pulse Resp BP 98.9 F 83 17 119/68 02/28/25 16:58 02/28/25 18:40 02/28/25 16:58 02/28/25 18:40 Narrative: Alert and oriented. Normal heart rate and rhythm. Lungs clear no wheezes. Gravid abdomen. Gynecoid pelvis. Estimated weight 3034. Vaginal exam on admission was long, fingertip. High and thick. Vertex presentation. heart rate on admission was category 1 with accelerations and moderate variability and occasional contractions Detailed Labor and Delivery Exam Dilation (cm): ftp Effacement (%): thick/soft Cervix position: mid station: -4 Consistency: soft Presentation: Vertex Cervical ripeness score: 3 Membranes: intact Baseline heart rate: 145 monitor accelerations: 15x15 monitor decelerations: None skilled nursing variability: Moderate (11-25) Contraction frequency (min): occ Contraction duration (sec): 50 Tachysystole: No Contraction intensity: Mild OB Results Labs 02/28/25 10:30 02/28/25 10:30 Labs: Short CBC 02/28/25 Range/Units 10:30 WBC 8.8 (3.6-11.0) Thou/mm3 Hgb 11.5 L (12.0-16.0) g/dL Hct 33.0 L (36.0-46.0) % Plt Count 205 (140-440) Thou/mm3 BMP 02/28/25 10:30 Sodium 139 Potassium 3.4 D Chloride 107 Carbon Dioxide 20.4 BUN 8 L Creatinine 0.6 Glucose 103 Calcium 9.8 Liver Function 02/28/25 Range/Units 10:30 Total Bilirubin 0.5 (0.3-1.2) mg/dL AST 13 (0-34) U/L ALT 7 L (10-49) U/L Alkaline Phosphatase 124 H (46-116) U/L Albumin 3.7 (3.5-5.0) gm/dL OB Assessment & Plan Assessment and Plan (1) Diet controlled gestational diabetes mellitus (GDM) in second trimester: Status: Acute (2) Advanced maternal age (AMA), 40 years or greater: Status: Acute Additional Plan Induction method: per misoprostol protocol Plan: induction, augmentation, anticipate NVD and consult MD oropeza
[2025-02-28] MEDS: OXYTOCIN in NS 30 units 30 UNIT/500 ML BAG IV (21:32)
[2025-03-01] VITALS (229 sets, daily range): BP systolic 104–146; BP diastolic 55–94; PULSE 56–110; RESP 14–18; TEMP 36.4–36.9; O2SAT 89–100
[2025-03-01] MEDS: RINGERS LACTATED 1000 ML 1,000 ML 100 ML IV ×3 (00:11→13:14)
--- NOTE | 2025-03-01 01:39 | PD.LDPN ---
Documentation for date of: 03/01/25 OB Labor Progress Note Pain Control Pain control: tolerating well Pelvic Exam Dilation (cm): 1 Effacement (%): 60 station: -4 Amniotic membrane status: Intact Contractions Monitor mode: External Contraction frequency: 3-5 Contraction intensity: Moderate Status status: Category l Assessment and Plan Pitocin rate (mU/min): 6 Assessment: induction ongoing Plan OB labor note: continuous present management
[2025-03-01] MEDS: OXYTOCIN in NS 20 units 20 UNIT/1,000 ML BAG 125 UNIT IV (14:51)
[2025-03-01] MEDS: OXYTOCIN INJ 10 UNIT/ML VIAL IM (14:51)
[2025-03-01] MEDS: TRANEXAMIC ACID 1,000 MG IVPB 1,000 MG/100 ML BAG 200 MG IV ×2 (14:55→15:39)
--- NOTE | 2025-03-01 14:56 | ESDS_ITS ---
DS: Providers Provider Date of admission: 02/28/25 08:56 Primary care physician: Physician No Primary/Family Admitting Provider: Zachery Horta MD Attending Provider on Admission: Yevgeniy Gary MD Attending Provider on DC: Yevgeniy Gary MD Discharging Provider: Yevgeniy Gary MD DS: Diagnosis Discharge Diagnosis (1) Vacuum-assisted vaginal delivery: Status: Acute (2) Diet controlled gestational diabetes mellitus (GDM) in second trimester: Status: Acute (3) Advanced maternal age (AMA), 40 years or greater: Status: Acute Problem List Completed Was Problem List Reviewed/Reconciled?: Yes Summary/Hosp Course Brief History: 39-year-old 9 para 4 admit for induction of labor. Patient is been followed at [facility] OB clinic. Her first visit was in the first trimester. She has last period April 27, 2025. Estimated due date February 01, 2025. Patient has poor dates. First ultrasound was September 05. Patient was 14 weeks and this change EDC to 03/06/2025. Patient's MFM sono's had shown good growth and consistent with this date. Patient denies social habits. Denies surgery. Denies any coexisting chronic illness. Patient has a history of abnormal 1 hour GTT and her 3-hour was abnormal as well. She has also had labile blood pressures that have been up off-and-on and so she was admitted for induction at 39 weeks. Patient is A+, antibody screen negative, RPR nonreactive, rubella nonimmune. Hepatitis B negative HIV negative GC chlamydia were negative. Hep C negative. And GBS was negative. Reports movement. Denies contractions Peripartum Data Delivery Method: Operative Vaginal Delivery Laceration Description: see Delivery Summary 1: Gender: Female Time Spent with Patient Time attestation: Total time spent providing and/or coordinating discharge services: Exam Vital Signs Temp Pulse Resp BP Pulse Ox O2 Del Method 98.3 F 90 14 133/77 H 99 Room Air 03/01/25 11:30 03/01/25 14:28 03/01/25 11:30 03/01/25 14:28 03/01/25 14:53 03/01/25 05:12 Discharge Plan Plan Patient Disposition: HOME (Self Care) Patient condition on transfer: Stable Prescriptions/Referrals Prescriptions/Med Rec: New ibuprofen 600 mg tablet 600 mg PO Q6H PRN (Reason: pain) Qty: 30 0RF No Action (DME) blood-glucose meter Kit See Rx Instructions .MEDSUPPLY Qty: 1 0RF Rx Instructions: As directed (DME) Blood Glucose Test Strip See Rx Instructions .MEDSUPPLY Qty: 10 0RF Rx Instructions: As directed (DME) lancets Misc See Rx Instructions .MEDSUPPLY Qty: 100 0RF Rx Instructions: As directed vit-iron fum-folic ac [ Vitamin with Minerals] 28 mg iron- 800 mcg tablet 1 tab PO QDAY Qty: 60 2RF loratadine [Claritin] 10 mg tablet 10 mg PO QDAY PRN (Reason: allergic symptoms) Qty: 30 2RF ferrous sulfate 325 mg (65 mg iron) tablet 325 mg PO BID Qty: 60 2RF ferrous sulfate 325 mg (65 mg iron) tablet 325 mg PO BID Qty: 60 2RF vit-iron fum-folic ac [ Vitamin with Minerals] 28 mg iron- 800 mcg tablet 1 tab PO QDAY Qty: 60 2RF (DME) blood-glucose meter Kit See Rx Instructions .MEDSUPPLY Qty: 1 0RF Rx Instructions: As directed (DME) Blood Glucose Test Strip See Rx Instructions .MEDSUPPLY Qty: 10 0RF Rx Instructions: As directed (DME) lancets Misc See Rx Instructions .MEDSUPPLY Qty: 100 0RF Rx Instructions: As directed aspirin 81 mg tablet 81 mg PO QDAY Referrals: No Primary/Family,Physician [Primary Care Provider] - Patient/Caregiver Discharge Instructions Discharge Activity: activity as tolerated Other Discharge Activity Instructions:: Follow up with Arcelia Joy in 4- 6 weeks Print Language: [place]orese Stand Alone Forms: Layla Award Info., Patient Portal Info Letter Planned Discharge Date 03/02/25
--- NOTE | 2025-03-01 15:14 | OBDSUM_ITS ---
Shoulder Dystocia Surgical Team Notified Surgical team notified:: Yes Vacuum Assisted Delivery General Patient Counseled by physician:: Yes Informed consent to patient:: Yes Estimated weight:: 8 lb Cervical dilation:: fully dilated station:: +3 position:: OA Molding:: No Caput:: No Vacuum Application Vacuum type:: Mityvac Vacuum application:: flexing median Total vacuum time (min):: 2 Maximum pressure (cm Hg):: 50 Cup Placement Flexion point identified:: Yes Cup approp. for head position:: Yes Maternal tissue excluded:: Yes Vacuum Procedure Number of pulls (contractions):: 1 Number of pop-offs:: 0 Recommended range maintained:: Yes Vacuum reduced between pulls:: Yes Advancement made each pull:: Yes Vacuum successful:: Yes Immediate Evaluation Immediate assessment:: no apparent injury Hand-off care to:: nursery nurse Additional Comments Additional comments: Vaccum performed for poor maternal expulsive effort Data (Lopez) Data Hx Section: No : 9 Term: 4 : 0 Livin Abortions: Spontaneous & Theraputic: 4 Delivery Data (Lopez) Labor Data Initiation of labor: Induction Induction/Augmentation Agent: Cervidil ROM date: 03/01/25 ROM time: 14:04 Amniotic membrane rupture type: Artificial Amniotic fluid description: Clear Delivery Data EDC: 03/06/25 EDC calculated by:: ultrasound Onset of labor date: 03/01/25 Onset of labor time: 02:00 Complete dilation date: 03/01/25 delivery date: 03/01/25 [place] delivery time: 14:49 Placenta delivery date: 03/01/25 Placenta delivery time: 14:55 Length stage 1 (hours): 12 Length stage 1 (minutes): 30 Length stage 2 (minutes): 19 Delivered by: Arcelia Joy Delivery Method Delivery method: Operative Vaginal Delivery Presentation: Vertex position: OA Anesthesia Type Anesthesia Type: Epidural Placenta Placenta delivery description: Spontaneous Cord blood sent to lab: Yes Lacerations #1: Perineal: 1st degree Perineal repair Sutures used for repair: 3.0 Chromic EBL Estimated blood loss (ml): 200 Additional Procedures Once the head was brought down to crowing with the vacuum by Dr Gary and the patients expulsive efforts, Arcelia Joy did the remainder of the vaginal delivery. Complications Complications: None Data (Lopez) Data 's gender: Female weight (gms): 7 lb 5.5 oz [place] length: 20 in 1 minute: 8 5 minutes: 9
--- NOTE | 2025-03-01 15:23 | PD.LDPN ---
Documentation for date of: 03/01/25 OB Labor Progress Note Pain Control Pain control: epidural Pelvic Exam Dilation (cm): 9 Effacement (%): 90 station: -2 Amniotic membrane status: Ruptured Contractions Monitor mode: External Contraction frequency: 2-3 Contraction duration: 60 Contraction phase: Resting Contraction intensity: Moderate Status status: Category ll Assessment and Plan Pitocin rate (mU/min): 9 Assessment: active labor Plan OB labor note: continuous present management CNM Management MD Consulted (describe details below): Yes
--- NOTE | 2025-03-01 15:32 | PD.LDDELS ---
Data (Lopez) Data Hx Section: No : 9 Term: 4 : 0 Livin Abortions: Spontaneous & Theraputic: 4 Delivery Data (Lopez) Labor Data Initiation of labor: Induction Induction/Augmentation Agent: Cervidil, Pitocin and Artificial ROM ROM date: 03/01/25 ROM time: 14:04 Amniotic membrane rupture type: Artificial Amniotic fluid description: Bloody Delivery Data EDC: 03/06/25 EDC calculated by:: LMP/early US confirmation Onset of labor date: 03/01/25 Onset of labor time: 02:00 Complete dilation date: 03/01/25 Complete dilation time: 14:30 delivery date: 03/01/25 [place] delivery time: 14:49 Gestational age (weeks): 39 Gestational age (days): 1 Placenta delivery date: 03/01/25 Placenta delivery time: 14:55 Stage 1 total time: Labor - Stage 1 Duration 12 hours and 30 minutes Delivered by: Coby Joy Delivery nurse: Shawna Encarnacion nurse: Akshat Waldron Adzing And Boring Machine Helper at delivery: No Support person(s) at delivery: FOB Other staff at delivery: Gail MORA Delivery Method Delivery method: Operative Vaginal Delivery (x1 pull to bring head down. patient then pushed fetus out) Presentation: Vertex position: OA Anesthesia Type Anesthesia Type: Epidural Delivery Room Medications Delivery room medications: Pitocin 10 u IM, Pitocin 20 u IV, Cytotec 800 [place] and other (TXA x2) Placenta Placenta delivery description: Spontaneous (inspected, intact) Cord blood sent to lab: Yes cord blood collection: Cord Blood Type Episiotomy Episiotomy description: None Lacerations #1: Vaginal: 1st degree (small 3 stitch) Perineal repair Sutures used for repair: 3.0 Chromic EBL Estimated blood loss (ml): 400 Umbilical Cord cord description: [address] Gary called for prolonged deceleration and possible Vacuum assist delivery. patient in lithotomy and pushing well when directed. mighty vacuum applied, 1 pull. vacuum removed when head near introitus. patient then. pushed baby out into my hands. vigorous at 5 minute [place] Data (Lopez) [place] Data order: 1 [place]'s gender: Female Identification band number: [id number] weight (gms): 3330 g Weight (pounds): 7 lbs and 5.5 ozs [place] length: 50.8 cm 1 minute: 8 5 minutes: 9
[2025-03-01] MEDS: IBUPROFEN TAB 400 MG TABLET 800 MG PO (17:06)
[2025-03-01 20:43] LABS: Basophils # (Auto) 0.0 Thou/mm3 (0.0-0.2); Basophils % (Auto) 0 % (0-2.5); Eosinophils # (Auto) 0.1 Thou/mm3 (0.0-0.5); Eosinophils % (Auto) 1 % (0-10); Hematocrit 30.3 % (36.0-46.0); Hemoglobin 10.4 g/dL (12.0-16.0); Immature Granulocytes Auto 0.04 Thou/mm3 (0.00-0.00); Lymphocytes # (Auto) 1.6 Thou/mm3 (1.0-4.8); Lymphocytes % (Auto) 13 % (10-50); Mean Corpuscular HGB Conc 34.3 g/dl (31.0-37.0); Mean Corpuscular Hemoglobin 32.2 pg (25.0-35.0); Mean Corpuscular Volume 94 fL (80-100); Monocytes # (Auto) 1.1 Thou/mm3 (0.0-0.8); Monocytes % (Auto) 9 % (0-12); Neutrophils # (Auto) 9.9 Thou/mm3 (1.8-7.7); Neutrophils % (Auto) 78 % (37-80); Nucleated Red Blood Cell # 0.00 Thou/mm3 (0.00-0.00); Nucleated Red Blood Cell % 0 /100 WBC (0); Platelet Count 182 Thou/mm3 (140-440); RDW Standard Deviation 46.3 fL (36.4-46.3); Red Blood Count 3.23 Miln/mm3 (4.00-5.20); White Blood Count 12.7 Thou/mm3 (3.6-11.0)
[2025-03-02 03:53] VITALS: BP 146/77; PULSE 73; RESP 16; TEMP 36.9; O2SAT 97
[2025-03-02 07:05] VITALS: BP 132/83; PULSE 79; RESP 16; TEMP 36.6; O2SAT 96
[2025-03-02] MEDS: IBUPROFEN TAB 400 MG TABLET 800 MG PO (07:10)
--- NOTE | 2025-03-02 09:09 | ESPR_ITS ---
Subjective Subjective Interval history: No complaints of pain. No dizziness. Bonding breast Exam Vital Signs Temp Pulse Resp BP Pulse Ox O2 Del Method 97.9 F 79 16 132/83 H 96 Room Air 03/02/25 07:05 03/02/25 07:05 03/02/25 07:05 03/02/25 07:05 03/02/25 07:05 03/02/25 07:05 Narrative Exam Vital signs are stable afebrile. Breasts are soft. Fundus firm below the mellitus. Perineum is intact no swelling. Small lochia. Uterus well involuted. 2+ DTRs. Negative Homans' sign. Objective Labs 03/01/25 20:34 02/28/25 10:30 Labs: Laboratory Results - last 24 hr 03/01/25 20:34 WBC 12.7 H D RBC 3.23 L Hgb 10.4 L Hct 30.3 L MCV 94 MCH 32.2 MCHC 34.3 RDW Std Deviation 46.3 Plt Count 182 Neut % (Auto) 78 Lymph % (Auto) 13 [place] % (Auto) 9 Eos % (Auto) 1 Baso % (Auto) 0 Neut # (Auto) 9.9 H Lymph # (Auto) 1.6 [place] # (Auto) 1.1 H Eos # (Auto) 0.1 Baso # (Auto) 0.0 Immature Gran # (Auto) 0.04 H Absolute Nucleated RBC 0.00 Immature Gran % 0 Nucleated RBC % 0 Assessment & Plan Problem List (1) Vacuum-assisted vaginal delivery: Status: Acute (2) Diet controlled gestational diabetes mellitus (GDM) in second trimester: Status: Acute (3) Advanced maternal age (AMA), 40 years or greater: Status: Acute Assessment Comment Assessment comment: 24 hr pp Plan Comment Plan Comment: Discharge home with baby today. Continue vitamins and iron. Tylenol ibuprofen for pain. Discussed danger signs symptoms and ER precautions. Discussed signs symptoms of infection. Increase fluids. Rest. Return in 4 weeks for visit Time Spent With Patient Time: Total time spent is greater than 50% in coordination of care (as documented) at patient's floor/unit and/or counseling patient:
--- NOTE | 2025-03-02 09:11 | PD.LDDS ---
DS: Providers Provider Date of admission: 02/28/25 08:56 Primary care physician: Physician No Primary/Family Admitting Provider: Zachery Horta MD Attending Provider on Admission: Yevgeniy Gary MD Consults: 03/01/25 17:48 Referral Routine Comment: Attending Provider on DC: Arcelia Joy CNM Discharging Provider: Arcelia Joy CNM DS: Diagnosis Problem List Completed Was Problem List Reviewed/Reconciled?: Yes Summary/Hosp Course Brief History: 39-year-old 9 para 4 admit for induction of labor. Patient is been followed at [facility] OB clinic. Her first visit was in the first trimester. She has last period April 27, 2025. Estimated due date February 01, 2025. Patient has poor dates. First ultrasound was September 05. Patient was 14 weeks and this change EDC to 03/06/2025. Patient's MFM sono's had shown good growth and consistent with this date. Patient denies social habits. Denies surgery. Denies any coexisting chronic illness. Patient has a history of abnormal 1 hour GTT and her 3-hour was abnormal as well. She has also had labile blood pressures that have been up off-and-on and so she was admitted for induction at 39 weeks. Patient is A+, antibody screen negative, RPR nonreactive, rubella nonimmune. Hepatitis B negative HIV negative GC chlamydia were negative. Hep C negative. And GBS was negative. Reports movement. Denies contractions Peripartum Data Delivery Method: Operative Vaginal Delivery (x1 pull to bring head down. patient then pushed fetus out) Episiotomy Description: None Laceration Description: yes (3 stitch in vagina) complications: none Time Spent with Patient Time attestation: Total time spent providing and/or coordinating discharge services: Exam Vital Signs Temp Pulse Resp BP Pulse Ox O2 Del Method 97.9 F 79 16 132/83 H 96 Room Air 03/02/25 07:05 03/02/25 07:05 03/02/25 07:05 03/02/25 07:05 03/02/25 07:05 03/02/25 07:05 Discharge Plan Plan Patient Disposition: HOME (Self Care) Patient condition on transfer: Stable Prescriptions/Referrals Prescriptions/Med Rec: New ibuprofen 600 mg tablet 600 mg PO Q6H PRN (Reason: pain) Qty: 30 0RF docusate sodium [Colace] 100 mg capsule 100 mg PO BID Qty: 14 0RF hydrocortisone [Proctosol HC] 2.5 % cream with perineal applicator 1 applic UT QDAY PRN (Reason: hemorrhoids) Qty: 30 1RF No Action (DME) blood-glucose meter Kit See Rx Instructions .MEDSUPPLY Qty: 1 0RF Rx Instructions: As directed (DME) Blood Glucose Test Strip See Rx Instructions .MEDSUPPLY Qty: 10 0RF Rx Instructions: As directed (DME) lancets Misc See Rx Instructions .MEDSUPPLY Qty: 100 0RF Rx Instructions: As directed vit-iron fum-folic ac [ Vitamin with Minerals] 28 mg iron- 800 mcg tablet 1 tab PO QDAY Qty: 60 2RF loratadine [Claritin] 10 mg tablet 10 mg PO QDAY PRN (Reason: allergic symptoms) Qty: 30 2RF ferrous sulfate 325 mg (65 mg iron) tablet 325 mg PO BID Qty: 60 2RF ferrous sulfate 325 mg (65 mg iron) tablet 325 mg PO BID Qty: 60 2RF vit-iron fum-folic ac [ Vitamin with Minerals] 28 mg iron- 800 mcg tablet 1 tab PO QDAY Qty: 60 2RF (DME) blood-glucose meter Kit See Rx Instructions .MEDSUPPLY Qty: 1 0RF Rx Instructions: As directed (DME) Blood Glucose Test Strip See Rx Instructions .MEDSUPPLY Qty: 10 0RF Rx Instructions: As directed (DME) lancets Misc See Rx Instructions .MEDSUPPLY Qty: 100 0RF Rx Instructions: As directed aspirin 81 mg tablet 81 mg PO QDAY Referrals: No Primary/Family,Physician [Primary Care Provider] - Patient/Caregiver Discharge Instructions Meds to Beds: No Discharge Activity: activity as tolerated and resume usual activities Other Discharge Activity Instructions:: Follow up with Arcelia Joy in 4- 6 weeks Print Language: Urdu Activity Restrictions/Additional Instructions: Discharge home with baby. Continue vitamins and iron. Tylenol ibuprofen for pain. Discussed sitz bath's for hemorrhoid pain. I will give her Proctosol to apply twice daily. Increase fiber and roughage. Increase fluids. Discussed danger signs and symptoms and signs of infection. I discussed ER precautions with parameters. Return in 4 weeks visit Stand Alone Forms: Layla Award Info., Patient Portal Info Letter Planned Discharge Date 03/02/25
[2025-03-02 11:10] VITALS: BP 114/69; PULSE 88; RESP 18; TEMP 36.8; O2SAT 97
== END 2025-03-02 15:16 | disposition home or self-care (01) | DRG 807 ==
LOC: S4SX 03-01 14:59 → S4NX 03-01 17:47
PROVIDERS: Advanced Practice Midwife; Admitting Provider Obstetrics & Gynecology; Visit Provider Specialist
DX: O24.420 Gestational diabetes mellitus in childbirth, diet controlled (principal); Z37.0 Single live birth; Z3A.39 39 weeks gestation of pregnancy; O13.4 Gestational [pregnancy-induced] hypertension without significant proteinuria, complicating childbirth; O70.0 First degree perineal laceration during delivery; O76 Abnormality in fetal heart rate and rhythm complicating labor and delivery; O66.0 Obstructed labor due to shoulder dystocia
CPT/HCPCS: 36415; 76805; 80053; 80307; 81001; 84550; 85025; 85384; 85610; 85730; 86780; 86850; 86900; 86901; 87491; 87591; 87661; J2590; J2795; J3010; J3490; J7120; S0191; A9270

== ENCOUNTER 2025-03-07 15:11 | Emergency (ER) | payer BC, SELFPAY ==
[2025-03-07 15:13] VITALS: BMI 32.4
[2025-03-07 15:35] VITALS: BP 164/98; PULSE 87; RESP 17; TEMP 36.7; O2SAT 97
--- NOTE | 2025-03-07 15:46 | XR_ITS ---
Examination: Duplex scan of the lower extremity, unilateral right Date and time of exam: March 07, 2025 1556 hours INDICATIONS: Right leg filling and pain today Technique: Duplex scan of the extremity veins using B-mode/grayscale imaging and Doppler spectral analysis and color flow Attention is directed to internal echogenicity, compression and augmentation involving these veins, color flow assessment, spectral analysis Findings: Major deep venous structures in the extremity demonstrate normal course and caliber. There is no evidence of deep vein thrombosis. Normal color flow and spectral analysis Impression: Negative for DVT..
--- NOTE | 2025-03-07 16:33 | EDNOTE_ITS ---
ED Extremity Problem RME/HPI General Chief complaint: Extremity Problem,Nontraumatic Stated complaint: RIGHT THIGH PAIN/NUMBNESS TODAY, S/P BAby Time Seen by Provider: 03/07/25 15:46 Arrival date/time: 03/07/25 15:11 39-year-old female presents to the emergency department today stating that she had a baby on the patient reports that she had a epidural patient reports pain to the right upper thigh patient denies any swelling Limitations: no limitations Related Data Home Medications ?Medication ?Instructions ?Recorded ?Confirmed aspirin 81 mg tablet 81 mg PO QDAY 02/26/2502/26 Previous Rx's ?Medication ?Instructions ?Recorded vitamin-ferrous fumarate 1 tab PO QDAY #60 ta bs 11/14/24 28 mg iron-folic acid 800 mcg tablet ( Vitamins with Minerals) blood sugar diagnostic (Blood #10 ea 12/05/24 Glucose Test strips) blood-glucose meter #1 ea 12/05/24 ferrous sulfate 325 mg (65 mg 325 mg PO BID #60 tabs 0 12/05/24 iron) tablet lancets #100 ea 12/05/24 loratadine 10 mg tablet (Claritin) 10 mg PO QDAY PRN a llergic 12/05/24 symptoms #30 tabs vitamin-ferrous fumarate 1 tab PO QDAY #60 ta bs 12/05/24 28 mg iron-folic acid 800 mcg tablet ( Vitamins with Minerals) Held on 02/26/25. Instructions: Duplicate ferrous sulfate 325 mg (65 mg 325 mg PO BID #60 tabs 0 01/08/25 iron) tablet blood sugar diagnostic (Blood #10 ea 01/22/25 Glucose Test strips) blood-glucose meter #1 ea 01/22/25 lancets #100 ea 01/22/25 ibuprofen 600 mg tablet 600 mg PO Q6H PRN pain #30 t abs 03/01/25 docusate sodium 100 mg capsule 100 mg PO BID #14 caps 03/02/25 (Colace) hydrocortisone 2.5 % topical cream 1 applic OR QDAY OR N hemorrhoids 03/02/25 with perineal applicator #30 grams (Proctosol HC) Allergies Allergy/AdvReac Type Severity Reaction Status Date / Time No Known Allergies Allergy Verified 03/07/25 15:15 Review of Systems Review of Systems Systems Reviewed: All systems reviewed, normal except as documented Constitutional Constitutional: Reports system reviewed and no additional complaints, except as documented, Denies fever(s) and Denies headache(s) Eyes Eyes: Reports system reviewed and no additional complaints, except as documented and Denies blurry vision ENT Ears, Nose, Mouth, and Throat: Reports system reviewed and no additional complaints, except as documented, Denies headache(s), Denies nasal congestion and Denies nasal discharge Cardiovascular Cardiovascular: Reports system reviewed and no additional complaints, except as documented, Denies chest pain and Denies dyspnea Respiratory Respiratory: Reports system reviewed and no additional complaints, except as documented, Denies chest congestion, Denies cough and Denies dyspnea Gastrointestinal Gastrointestinal: Reports system reviewed and no additional complaints, except as documented and Denies abdominal pain Musculoskeletal Musculoskeletal: Reports system reviewed and no additional complaints, except as documented, Denies arthralgias, Denies deformity, Denies numbness, Reports stiffness and Reports tingling Integumentary/Breasts Skin/Breast: Reports system reviewed and no additional complaints, except as documented and Denies rash Neurologic Neurologic: Reports system reviewed and no additional complaints, except as documented, Reports as per HPI, Denies headache(s), Denies numbness and Reports tingling Past Medical History Past Medical History NEUROLOGIC: Negative Neurological Disorders CARDIAC: Negative Cardiac Disorders or Congestive Heart Failure RESPIRATORY: Positive Asthma (as a child, no meds); Negative Chronic Obstructive Pulmonary Disease (COPD) GASTROINTESTINAL: Positive Gastrointestinal Disorders and Hemorrhoids (from past labors) GENITOURINARY: Negative Genitourinary Disorders or Renal Disease REPRODUCTIVE: Positive Previous Pregnancies (x8 including 4 SAB); Negative Endometriosis, Pelvic Inflammatory Disease or Uterine Prolapse MUSCULOSKELETAL: Negative Musculoskeletal Disorders ENDOCRINE: Positive Endocrine Disorders; Negative Diabetes Mellitus Type 1 or Diabetes Mellitus Type 2 HEMATOLOGIC: Negative Blood Disorders OTHER HISTORY: Positive Hospitalization (childbirth) and Chicken Pox (as a small child); Negative Autoimmune Disease, Down Syndrome, Developmental Delay, Shingles, Falls, Blood Transfusions, Blood Transfusion Reaction, Anesthesia Reactions, Organ Transplant, Chemotherapy, Radiation Therapy, Hyperbaric Therapy, MRSA, VRSA, Vancomycin-Resistant Enterococci, Clostridium Difficile or Cancer Family History FAMILY HISTORY: Positive Family Respiratory Disorders (Asthma as a child, no meds) and Family Cancer (cousin colon cancer); Negative Family Psychiatric Problems, Family Cardiac Disorders, Family Gastrointestinal Problems, Family Surgery or Family Anesthesia Reaction Surgical History SURGICAL: Positive Abdominal Surgery; Negative Cardiac Surgery, Endocrine Surgery, Ear Surgery, Nephrectomy, Joint Replacement, Neurologic Surgery, Lumpectomy, Hysterectomy, Tubal Ligation, Section or Organ Transplant Social History SMOKING STATUS: Never smoker SECOND HAND EXPOSURE: No ED Exam General Limitations: Present no limitations General appearance: Present alert and in no apparent distress Head Head exam: Present atraumatic Eye Eye exam: Present normal appearance, PERRL and EOMI ENT ENT exam: Present normal exam, normal oropharynx and mucous membranes moist Neck Neck exam: Present normal inspection, full ROM and trachea midline Chest Chest inspection: Present normal inspection and symmetric chest wall rise Respiratory Respiratory exam: Present normal lung sounds bilaterally Cardiovascular Cardiovascular exam: Present regular rate, normal rhythm and normal heart sounds Abdominal Exam Abdominal exam: Present soft and normal bowel sounds Extremities Exam Extremities exam: Present full ROM, tenderness (Right leg pain) and normal capillary refill Back Exam Back exam: Present normal inspection and full ROM Neurological Exam Neurological exam: Present alert, oriented X3 and CN II-XII intact Psychiatric Psychiatric exam: Present normal affect and normal mood Skin Skin exam: Present warm, dry, intact and normal color Course Quality Measures none Orders Category Date Time Status US venous doppler LE RT Stat Exams 03/07/25 15:46 Completed Vital Signs Vital signs: Vital Signs Temperature 98.0 F 03/07/25 15:35 Pulse Rate 87 03/07/25 15:35 Respiratory Rate 17 03/07/25 15:35 Blood Pressure 164/98 H 03/07/25 15:35 Pulse Oximetry (%) 97 03/07/25 15:35 Oxygen Delivery Method Room Air 03/07/25 15:35 O2 saturation 97% on room air within normal limits Extremity Problem MDM Narrative MDM Narrative:: 39-year-old female presents to the emergency department today stating that she had a baby on the patient reports that she had a epidural patient reports pain to the right upper thigh patient denies any swelling On exam patient well-appearing patient does not appear toxic and no acute distress Patient has no bruising or swelling to the right extremity Ultrasound obtained no acute emergent findings noted no DVT noted Symptoms most likely secondary to nerve impingement Patient discharged home in no distress to follow primary care doctor next 24 to 48 hours for worsening symptoms return immediately Patient data External records reviewed:: [facility] previous records Clinical information provided by:: patient Social determinants that could affect healthcare access:: none Patient has the following chronic illnesses:: None How is presenting disease/condition affected by chronic disease/condition?: no chronic disease Evaluation data The following diagnostics were reviewed and interpreted by me:: radiology exam(s) Lab and/or radiology exams considered but not ordered:: Radiology obtained Interpretation Summary: By me Medications / Prescriptions Medications or Prescriptions considered but not ordered:: Given no meds Medication administrations:: Given no meds Consultations Consultation(s) initiated? (list below): No Diagnosis Extremity Problem Differential Diagnosis: other (Lower extremity pain, DVT, pain) Most likely diagnosis given after review of the tests above:: Pain right lower extremity Admission Indicated Admission indicated?: not indicated Admission Request Was there a request for admission?: No Disposition Plan Disposition Plan: Discharge Discharge Attestation Discharge Attestation: The patient and all family members were given an opportunity to ask questions and understood the discharge instructions. Discharge instructions specifically effects, indications for sooner follow up or return to the emergency department, and the expected course of current diagnosis. Patient condition: Stable Discharge Plan Plan Patient Disposition: HOME (Self Care) Discharge Disposition comment: Stable Prescriptions/Referrals Prescriptions/Med Rec: No Action (DME) blood-glucose meter Kit See Rx Instructions .MEDSUPPLY Qty: 1 0RF Rx Instructions: As directed (DME) Blood Glucose Test Strip See Rx Instructions .MEDSUPPLY Qty: 10 0RF Rx Instructions: As directed (DME) lancets Misc See Rx Instructions .MEDSUPPLY Qty: 100 0RF Rx Instructions: As directed vit-iron fum-folic ac [ Vitamin with Minerals] 28 mg iron- 800 mcg tablet 1 tab PO QDAY Qty: 60 2RF loratadine [Claritin] 10 mg tablet 10 mg PO QDAY PRN (Reason: allergic symptoms) Qty: 30 2RF ferrous sulfate 325 mg (65 mg iron) tablet 325 mg PO BID Qty: 60 2RF ferrous sulfate 325 mg (65 mg iron) tablet 325 mg PO BID Qty: 60 2RF vit-iron fum-folic ac [ Vitamin with Minerals] 28 mg iron- 800 mcg tablet 1 tab PO QDAY Qty: 60 2RF (DME) blood-glucose meter Kit See Rx Instructions .MEDSUPPLY Qty: 1 0RF Rx Instructions: As directed (DME) Blood Glucose Test Strip See Rx Instructions .MEDSUPPLY Qty: 10 0RF Rx Instructions: As directed (DME) lancets Misc See Rx Instructions .MEDSUPPLY Qty: 100 0RF Rx Instructions: As directed ibuprofen 600 mg tablet 600 mg PO Q6H PRN (Reason: pain) Qty: 30 0RF docusate sodium [Colace] 100 mg capsule 100 mg PO BID Qty: 14 0RF hydrocortisone [Proctosol HC] 2.5 % cream with perineal applicator 1 applic OR QDAY PRN (Reason: hemorrhoids) Qty: 30 1RF aspirin 81 mg tablet 81 mg PO QDAY Referrals: aSrika Kim MD [Primary Care Provider, Nephrology] - In 1 week Problem List Clinical Impression: Leg pain, right Patient/Caregiver Discharge Instructions Education Materials: RICE Additional Instructions: Please follow up with your primary care doctor in the next 24-48hrs for any worsening symptoms return here immediately Print Language: Vincentian Stand Alone Forms: Layla Award Info., Patient Portal Info Letter PA/TRAVEL ADMINISTRATOR Supervising Physician PA/TRAVEL ADMINISTRATOR Supervising Physician: Dr. khan
== END 2025-03-07 16:37 | disposition home or self-care (01) ==
PROVIDERS: Emergency Provider Family Medicine; PCP Internal Medicine
DX: M79.604 Pain in right leg (principal)
CPT/HCPCS: 93971; 99283

== ENCOUNTER 2025-04-08 09:34 | Outpatient (AMB) | payer BC, SELFPAY ==
[2025-04-08 09:43] VITALS: BP 164/90; PULSE 94; RESP 16; TEMP 36.2; O2SAT 16; BMI 29.2
--- NOTE | 2025-04-08 09:43 | AMBOBPPN_ITS ---
Vital Signs 04/08/25 09:43 Height 1.65 m Height Method Stated Weight 79.435 kg Weight Measurement Method Standing Scale BMI 29.2 BP 164/90 H Blood Pressure Source Automatic Cuff Blood Pressure Location Left Upper Arm Position Sitting Respiration 16 Pulse 94 Pulse Source Monitor Temp 97.2 F Temp Source Oral Pulse Oximetry (%) 16 L Oxygen Delivery Method Room Air Allergies/Home Meds Allergies & Medications Allergies No Known Allergies Allergy (Verified 04/08/25 09:45) Medication Reconciliation vitamin-ferrous fumarate 28 mg iron-folic acid 800 mcg tablet ( Vitamins with Minerals) 1 tab PO QDAY #60 tabs 11/14/24 [Rx Confirmed 04/08/25] blood sugar diagnostic (Blood Glucose Test strips) #10 ea 12/05/24 [Rx Confirmed 04/08/25] blood-glucose meter #1 ea 12/05/24 [Rx Confirmed 04/08/25] ferrous sulfate 325 mg (65 mg iron) tablet 325 mg PO BID #60 tabs 12/05/24 [Rx Confirmed 04/08/25] lancets #100 ea 12/05/24 [Rx Confirmed 04/08/25] loratadine 10 mg tablet (Claritin) 10 mg PO QDAY PRN allergic symptoms #30 tabs 12/05/24 [Rx Confirmed 04/08/25] vitamin-ferrous fumarate 28 mg iron-folic acid 800 mcg tablet ( Vitamins with Minerals) 1 tab PO QDAY #60 tabs 12/05/24 [Rx Confirmed 04/08/25] Held on 02/26/25. Instructions: Duplicate ferrous sulfate 325 mg (65 mg iron) tablet 325 mg PO BID #60 tabs 01/08/25 [Rx Confirmed 04/08/25] blood sugar diagnostic (Blood Glucose Test strips) #10 ea 01/22/25 [Rx Confirmed 04/08/25] blood-glucose meter #1 ea 01/22/25 [Rx Confirmed 04/08/25] lancets #100 ea 01/22/25 [Rx Confirmed 04/08/25] aspirin 81 mg tablet 81 mg PO QDAY 02/26/25 [History Confirmed 04/08/25] ibuprofen 600 mg tablet 600 mg PO Q6H PRN pain #30 tabs 03/01/25 [Rx Confirmed 04/08/25] docusate sodium 100 mg capsule (Colace) 100 mg PO BID #14 caps 03/02/25 [Rx Confirmed 04/08/25] hydrocortisone 2.5 % topical cream with perineal applicator (Proctosol HC) 1 applic GA QDAY PRN hemorrhoids #30 grams 03/02/25 [Rx Confirmed 04/08/25] Intake Visit Data Collection New Patient or Established: Established Patient (seen at [facility] within 3 years) Reason for Visit:: POSTPARTM Seen by Clinical Staff ONLY (RN/MA): No Customer Marketing Intern Required: No Do You Feel Safe at Home: Yes Authorities Contacted: N/A PCP or OBGYN visit in last 3 months: Yes Hx Now: No Are you currently on any form of Control: No Pain Present Currently: No Pain Scale Used: Cueto-Gonsalez/Numerical Pain scale:: 0 Smoking Status Smoking Status: Never smoker 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: Past Medical History Past Medical History: No Hx Neurological Disorders, No Hx Cardiac Disorders, No Hx Cancer, No Hx Blood Disorders, Yes Hx Gastrointestinal Disorders, No Hx Renal Disease, No Hx Diabetes Mellitus Type 1, No Hx Diabetes Mellitus Type 2, No Hx Tubal Ligation and No Hx Hysterectomy Questionnaires Covid-19 Vaccine Questionnaire Has patient been vacinated for Covid-19 Have you been vacinated for Covid-19: Yes Social History Living Situation History Lives With: Family Housing: House Tobacco History Smoking Status: Never smoker Second Hand Smoke Exposure: No Alcohol History Alcohol Intake: Never Substance Use History Substance Use: none Domestic Abuse History Do You Feel Safe at Home: Yes Care OB Visit Log OB Flowsheet Initial Weight: Not Recorded Date -?-?-?-?-?-?-?-?-?-?-?-?- EGA Weight BP Alb Glu CTX Pres Fundal ht FHR Mov Dilation Station Effacement Hx Notes Visit Note 10/15/24 -?-?-?-?-?-?-?-?-?-?-?-?- 19w 5d 85.899 kg 114/73 active 8 para 4 at 19 weeks and 5 days gestation. Her obstetric history includes 3 abortions and 4 living children. Patient reports feeling movement. Diagnostic Test Results and Labs: - Blood group: A positive - Antibody screen: Negative - Hemoglobin: 10.8 g/dL - RPR: Non-reactive - Hepatitis B: Negative - HIV: Negative - Rubella: Equivocal. - Ultrasound scheduled for October 24 5. - Follow-up appointment in 4 weeks (appr oximately 24 weeks gestation) with Dr. Paniagua. - Genetic testing still pending due to i nsurance issues at [facility]. - Provided new lab order for patient to attempt genetic test ing again. 11/14/24 -?-?-?-?-?-?-?-?-?-?-?-?- 24w 0d 86.693 kg 128/80 absent 24 145 ac tive reports + FM. no PTL complaints. patient plans to [facility] 12[facility]12. No OB complaints. 3rd tri labs, ptl precaution, f/u MFM. rtc 4 week 12/05/24 -?-?-?-?-?-?-?-?-?-?-?-?- 27w 0d 88.451 kg 132/79 absent unknown 27 142 active leaving for [facility] 12/12. RTC 12/25, denies PTL complaints, reports good FM, No OB complaints, refill PNV/iron and claritin, start monitoring BS, rx glucometer,lancet and strips to [facility], discuss GDM diet, test 1 hr P meals and fasting in am, walk 4o minute daily, hydrate, ptl precaution, f/u mfm. 12/2601/08/25 -?-?-?-?-?-?-?-?-?-?-?-?- 31w 6d 87.6 kg 127/79 absent unknown 32 143 active fetus active, no PTL complaints, disability nV, disc uss GTT and 3rd tri lab results, ordered glucometer,lancet and strip. discuss GDM diet, test 4 x dailt, schedule week NST/BPP, walk 40 min daily. TDAP NV, hydrate, keep f/u mfm appointmant 01/22/25 -?-?-?-?-?-?-?-?-?-?-?-?- 33w 6d 88.677 kg 120/79 absent cephalic 33 145 active Increased third trimester discomforts. Pressure. Patient thinks she lost her mucous plug. Reports good movement. Patient is concerned that lab did not give her the proper test strips for her glucometer. Denies leaking, bleeding, contractions. Reordered glucometer kit. Reviewed labor precautions. Increase fluids. I discussed GDM diet and logging P. Continue weekly NST BPP. She has a follow-up MFM in February. Increase fluids. Discussed labor precautions. Return in 2 weeks for GBS Reordered glucometer kit. R lilianawed labor precautions. Increase fluids. I discussed GDM diet and logging P. Continue weekly NST BPP. She has a follow-up MFM in February. Increase fluids. Discussed labor precautions. Return in 2 weeks for GBS, Patient needs nuswab for GC/CT with GBS nv 02/05/25 -?-?-?-?-?-?-?-?-?-?-?-?- 35w 6d 88.961 kg 127/78 absent cephalic 35 145 active CX:LCP/high. soft. 02/01 ER visit for back pain and vomiting. DC home, UA clear. fetus active. feels better today. denies leaking.no bleeding,no uc. sugares at goal, compliant with week NST/BPP and FKV. IOL 39week continue GDM diet, walk 40 minutes, continue monitoring BS and week NST/BPP. fkc bid, hydt=rate. comfort measure for back ache, gydrate. ptl precaution, rtc 1 week continue GDM diet, walk 40 m inutes, continue monitoring BS and week NST/BPP. fkc bid, hydt=rate. comfort measure for back ache, gydrate. ptl precaution, rtc 1 week. GBS 02/12/25 -?-?-?-?-?-?-?-?-?-?-?-?- 36w 6d 90.322 kg 123/72 occasional cephalic 36 140 active last work day: 02/19/25, IOL at 39 week. denies bleeding, no leaking, increased pressure. fetus active. compliant with week NST/BPP, compliant with gdm diet and glucose monitoring. sugars at goal 90% F etal kick count twice a day. Continue GDM diet. Walk for 40 minutes a day. Continue weekly NST BPP. Increase fluids. Off work starting February 19. Induced at 39 weeks. Discussed labor precautions. Return week OB check 02/19/25 -?-?-?-?-?-?-?-?-?-?-?-?- 37w 6d 90.718 kg 132/79 occasional cephalic 37 145 active 0 SVE: LCP, high, soft. Sugars at goal per patient. Reports good movement. Patient is compliant with GDM diet. She is also compliant with weekly NST BPP. Denies leaking, denies bleeding. Increased pressure Continue weekly NST BPP. Kick counts twice a day. Continue GDM diet and glucose monitoring. Discussed labor precautions and danger signs and symptoms. Continue weekly NST BPP. Ki ck counts twice a day. Continue GDM diet and glucose monitoring. Discussed labor precautions and danger signs and symptoms. disability started on 02/16/25. return to work 6 week PP Continue weekly NST BPP. Ki ck counts twice a day. Continue GDM diet and glucose monitoring. Discussed labor precautions and danger signs and symptoms. disability started on 02/16/25. return to work 6 week PP. IOL 02/27/25 02/26/25 -?-?-?-?-?-?-?-?-?-?-?-?- 38w 6d 90.832 kg 150/79 150/74 occasional cephalic 38 145 active 1 -4 50 sve: 50/1/high/ soft,pst. denies PIH s/s, fetus active, denies leaking,bleeding/contraction, sugars at goal 90%, compliant with GDM diet and antepartum testing Discussed labor precautions. Discussed kick count. Patient to labor and delivery for PIH workup and monitoring. Continue to monitor blood sugars and log them. Kick count twice a day. Reviewed PIH signs symptoms with patient. Patient is scheduled for induction February 27, 2025 NORMA Calculator Estimated Delivery Date Method Current WG Current Estimate 03/06/25 Ultrasound #1 44w 5d Other Estimates 02/01/25 LMP (Uncertain) 49w 3d 03/06/25 Ultrasound #2 44w 5d Notes Visit Date: 02/26/25 Last Updated by: Arcelia Joy CNM 02/06: GBS- Visit Date: 01/22/25 Last Updated by: Arcelia Joy CNM 01/22: 39 yo poor dates. LMP 04/27/24. EDC: 02/01/25. 1st sono: 09/05/24: 14week. CEDC: 03/06/25. A+,abs-, rpr;;nr, rub: equivical, HBSAG-,HC-,HIV-, GC/CT:not done, GDM/diet anatomy scan: 10/24: IUP 21 week/confirm CEDC. 12/26 growth sono: IUP 30 week, EFW 44%. Visit Date: 01/08/25 Last Updated by: Arcelia Joy CNM 01/08: 1hr gtt: 192, A1c: 4.9, Visit Date: 12/05/24 Last Updated by: Arcelia Joy CNM 12/05; cbc: hct: 32/11, platelet:wnl, 1hr gtt: 198, rpr;nr, A1c: 4.9, TDAP today sono 09/06/23: 14 weeks. EDC 03/06/25. (final NORMA. No Dates) Visit Date: 11/14/24 Last Updated by: Arcelia Joy CNM 39 yo . lmp 05/31/24. EDC 03/06/25, [facility] 10/24: 21 week. EDC: 03/08/25. : A+,ABS-, rpr;;nr, rub NI, HIV-glucose:105, A1: 5.3, H/H: 10/265 HPI Interval History: 39-year-old 9 para 4 for 8-week . Patient had a vaginal March 01, 2025 she was induced because gestational diabetes.. Patient was induced at 39 weeks. She had an ER visit March 08 for right thigh pain. Sono was done and showed negative for DVT. And all her labs were normal limits. No pain at this time. She is breast and bottlefeeding denies any PIH symptoms such as headache blurred vision or epigastric pain. She is happy no depression. She has good family support at home. Patient plans on a tubal ligation but she would like Depo to day. Was or delivery considered high risk: Yes Delivery type: vaginal Was labor induced: yes (GEST diabetes/diet and AMA) and no Gestational age at delivery (weeks): 39 Delivery date: 03/01/25 Delivering provider: ovidio Delivery complications comment: no Is patient infant: Yes Is patient sexually active: No Contraception planned: Depo today. 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 Lungs clear no wheezes. Abdomen is soft nontender. Uterus well involuted. Perineum is intact no lacerations. No swelling. Small lochia. Negative Homans' sign. 2+ DTRs. No edema no swel ling. Breasts are soft General Limitations: no limitations General Appearance: alert, in no apparent distress, comfortable, cooperative, healthy appearing, well developed and well groomed Head Head exam: atraumatic, normocephalic and normal inspection ENT ENT exam: Present normal exam, normal oropharynx and mucous membranes moist Neck Neck exam: Present normal inspection, full ROM and trachea midline Chest Chest inspection: Present normal inspection and symmetric chest wall rise Resp Respiratory exam: Present normal lung sounds bilaterally Card Cardiovascular exam: Present regular rate, normal rhythm and normal heart sounds Abdominal Abdominal exam: Present soft and normal bowel sounds Extremities Extremities exam: Present normal inspection and full ROM Psych Psychiatric exam: Present normal affect and normal mood Office Procedures OBC Clinic LOC & Office Proc's Nursing/Assessment Patient Status: Established Patient OB Clinic Nursing Assessment: Medication Reconciliation, Update PMH in EMR and Vital Signs OB Clinic Coordination of Care: Education Complex Pt/Fam, Consent,records obtained, informed consent, Lab and Imaging orders, Results/Orders obtained and Staff clarify orders Established Patient Charge Established Patient Point Assignment: 85 Established Patient Point Charge: EP Level 3 (80-115) Office Meds Depo-Provera 150 mg/mL intramuscular syringe Performing Provider: Arcelia Joy CNM Performing Location: [facility] Clinic Administered by: Mag Foy MA on 04/08/25 13:37 Dose Route Admin Location Dispensed Lot Number Expiration Date Pack age [facility] Filler Picker 150 mg IM LEFT GLUTE 1 mL [id number] 03/04/26 1521-1854-38 [id number] [facility] [employer] Comments: PT WAITED 15 MIN NO REACTION Assessment & Plan Diagnosis / Problem List (1) Routine Follow-Up: (2) 6 weeks follow-up: Status: Acute (3) Encounter for management and injection of depo-Provera: Status: Acute (4) Diet controlled gestational diabetes mellitus (GDM) in second trimester: Status: Acute Plan Schedule 2-hour GTT. I consulted with OB for blood pressures 164/90 x 2. Start patient on lisinopril 10 mg daily. And then refer patient to her primary care for hypertension today. I discussed with patient the need to get her blood pressure under control prior to her tubal surgery. Depo-Provera 150 IM today. Condoms for 2 weeks. Continue prenatals. Discussed diet and exercise. And I reviewed latching and and pumping. Patient will see OB in 3 weeks to schedule tubal ligation Care Reviewed delivery summary and any complications: Yes Uterus involuted to: 3 below umb Perineal / incision healing noted: Yes Screened for depression: Yes Depression counseling provided: No Discussed family planning & contraception: Yes Contraception planned: Depo today. The patient wants tubal ligation Counseling on safe resumption of sexual activity: Yes Counseling on gradual excercise: Yes Discussed and concerns (describe), provided support: Yes Referred to system configuration specialist: No Counseled on good nutrition, hydration, and self care: Yes Reviewed vaccine status: No care discussed; questions answered: feeding Follow up: routine/prn Additional counseling & anticipatory guidance provided: Depo-Provera 150 IM today. Return with OB in 3 weeks to schedule tubal. Start lisinopril 10 mg daily. And I advised patient to call her primary care doctor for [place] for an appointment to manage hypertension. 2-hour GTT today and we discussed diet and exercise. (FP) Tobacco Smoking Status: Never smoker
== END 2025-04-08 10:15 | disposition home or self-care (01) ==
LOC: HODSOBC 09:34
PROVIDERS: PCP Internal Medicine; Referring Provider Internal Medicine; Supervising Provider Advanced Practice Midwife; Visit Provider Advanced Practice Midwife
DX: Z39.2 Encounter for routine postpartum follow-up (principal); Z39.1 Encounter for care and examination of lactating mother; Z30.013 Encounter for initial prescription of injectable contraceptive; O24.430 Gestational diabetes mellitus in the puerperium, diet controlled; O16.5 Unspecified maternal hypertension, complicating the puerperium; Z79.899 Other long term (current) drug therapy
CPT/HCPCS: 96372; 99213; J3490; G0463